=== PATIENT | male | born 1950 | race Caucasian/White ===

== ENCOUNTER 2019-04-14 06:22 | Day surgery (SDC) | payer MEDICARE ==
[2019-04-11 10:35] VITALS: BMI 33.9
[2019-04-14] MEDS ORDERED: SODIUM CHLORIDE 0.9% 1,000 ML in EMPTY BAG 1 BAG IV ONE (06:37)
[2019-04-14] MEDS ORDERED: ALPRAZolam 0.25 MG TAB PO PRN (06:37)
[2019-04-14] MEDS ORDERED: ASPIRIN 325 MG TAB PO STA (06:37)
[2019-04-14] MEDS ORDERED: ATORVASTATIN 80 MG TAB PO STA (06:37)
[2019-04-14] MEDS ORDERED: NITROGLYCERIN SL TABS 0.4 MG TAB SUBLINGUAL PRN (06:37)
[2019-04-14] MEDS ORDERED: ALPRAZolam 0.5 MG TAB PO PRN (06:37)
[2019-04-14 07:03] VITALS: TEMP 97.7
[2019-04-14] MEDS ORDERED: BENZOCAINE SPRAY 1 CAN MUCOUS MEM ONE (07:33)
[2019-04-14] MEDS: fentaNYL (PF) 50 MCG/ML 2 ML AMP IV ONE ×2 (07:39→07:41)
[2019-04-14] MEDS ORDERED: MIDAZOLAM (PF) 2 MG/2 ML VIAL IV ONE ×2 (07:39→07:41)
[2019-04-14] MEDS ORDERED: LIDOCAINE 1% INJ 10MG/ML (20 ML MDV) SQ ONE (09:05)
[2019-04-14] MEDS ORDERED: VERAPAMIL SYRINGE (5 MG/10 ML) IV ONE (09:06)
[2019-04-14] MEDS ORDERED: HEPARIN SODIUM 1,000 UN/ML (10ML VL) IV ONE (09:06)
[2019-04-14] MEDS ORDERED: IOPAMIDOL-370 125ML BTL INJ ONE (09:16)
[2019-04-14] MEDS ORDERED: hydrALAZINE HCL 20 MG/ML 1 ML VIAL IV ONE (09:22)
[2019-04-14] MEDS ORDERED: SODIUM CHLORIDE 0.9% 1,000 ML IV SCH (09:30)
[2019-04-14 09:46] VITALS: RESP 18
--- NOTE | 2019-04-14 09:59 | ECHOT ---
TRANSESOPHAGEAL ECHOCARDIOGRAM DATE OF SERVICE: 04/14/2019. PERFORMING PHYSICIAN: Amador Schmitz MD, Front Desk. PROCEDURE PERFORMED: Transesophageal echocardiogram. INDICATION: This is a 69-year-old gentleman who was diagnosed recently with aortic stenosis. He was experiencing shortness of breath. On examination, he does have quite significant murmur with diminished S2. There was some concern about the severity of aortic stenosis and because of that, a transesophageal echocardiogram was advised. COMPLICATION: None. LEVEL OF SEDATION: Moderate with sedation length of 10 minutes. PROCEDURE DESCRIPTION: After obtaining an informed consent, explaining the procedure, benefits, risks, complications and alternatives, the patient was brought to the transesophageal echocardiogram suite. A pulse oximetry and heart rate monitors were attached to the patient prior to the procedure. The patient's throat was sprayed using lidocaine locally. Following that, the patient was turned into left lateral position. A bite guard was placed and the patient was then sedated with the above doses of Versed and fentanyl in divided doses. Following that, the transesophageal echocardiogram probe was advanced through the bite guard into the mid esophagus where 2-D echocardiogram images as well as color Doppler images of various cardiac structures were obtained. We evaluated the interatrial septum using 2-D echocardiogram, color Doppler, and contrast study. The procedure was completed. There were no complications. FINDINGS: The left ventricular dimension and systolic function appeared to be within normal limits. The ejection fraction appeared to be in the range of 60%. The right ventricle appeared to be of normal size and function. The left atrium appeared to be mildly dilated. The aortic valve appeared to be trileaflet valve with evidence of moderate aortic stenosis by planimetry as well as by gradient. I get the gradient of 23 mmHg only. By planimetry, the aortic valve measured 1.4 cm. The mitral valve seems to be mildly thickened with mild to moderate MR. There was mild to moderate tricuspid regurgitation and mild pulmonic insufficiency seen. The left atrial appendage appeared to be free from any thrombus. CONCLUSION: 1. Moderate aortic stenosis by gradient as well as by planimetry. 2. Normal left ventricular dimension and systolic function. 3. Normal right ventricular dimension and systolic function. 4. Normal left atrial appendage without any evidence of thrombus. 5. Intact interatrial septum without any evidence of shunt. 6. Mildly thickened mitral valve leaflets with mild to moderate mitral regurgitation. 7. Normal tricuspid valve and pulmonic valve. 8. Normal aortic root dimension. 9. No evidence of pericardial effusion. MMODL / IJN: [id number] /
[2019-04-14 11:39] VITALS: BP 155/77; PULSE 78
--- NOTE | 2019-04-14 17:53 | LTR ---
DATE OF SERVICE: April 14, [address] Arboleda: Mr. Ab Dumont underwent a transesophageal echocardiogram and heart catheterization today. The transesophageal echocardiogram revealed moderate aortic stenosis only. The heart catheterization revealed intermediate nonobstructive disease involving the LAD. Having said that, I did recommend maximized medical treatment and follow up with the patient. Thank you for allowing us to participate in his care and please do not hesitate to call if you have any question or concerns. MMODL / IJN: [id number] /
--- NOTE | 2019-04-14 17:55 | CC ---
CARDIAC CATHETERIZATION REPORT DATE OF SERVICE: April 14, 2019 PERFORMING PHYSICIAN: Amador Schmitz, aniline press worker. PROCEDURE PERFORMED: Selective right and left coronary angiogram. INDICATION: This is a 69-year-old gentleman who was referred by Dr. Matos for further evaluation of shortness of breath. The patient does have COPD, but it was felt that the shortness of breath out of proportion to the COPD. He does have aortic stenosis. APPROACH: Right radial artery. COMPLICATION: None. LEVEL OF SEDATION: Moderate with sedation length of 17 minutes. PROCEDURE DESCRIPTION: After obtaining an informed consent, the patient was brought to the cardiac seed laboratory assistant. The right radial artery was cannulated using micropuncture technique, the micropuncture wire passed easily. Then I placed a 6-Azerbaijani sheath in the right radial artery and subsequently I gave the patient 10,000 units of heparin IV and 2 mg of verapamil IA. Subsequently, I did selective right and left coronary angiogram using JR4 and JL3.5 catheters. Left heart catheterization was not performed. The procedure was completed without any complication. SELECTIVE CORONARY ANGIOGRAM: 1. The right coronary artery is a large caliber vessel and codominant vessel. It appeared to be angiographically normal. Distally bifurcates into small PDA and PLV branches both appeared to be angiographically normal. 2. The left main is calcified with mild disease only. It bifurcates into left circumflex and LAD. 3. The left circumflex is a large caliber vessel and it is a codominant vessel. The proximal circumflex appeared to be angiographically normal. The mid circumflex appeared to be normal and gives rise into a large OM branch which appeared to be angiographically normal and the circumflex after that appeared to be normal and bifurcates distally into PDA and PLV branches, both appeared to be angiographically normal. 4. The proximal LAD appeared to have a lesion in the range of 50% only. It gives rise into a diagonal branch which seems to be normal. The mid and distal LAD appeared to be normal. 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 POSTPROCEDURE MANAGEMENT: 1. Maximize medical treatment. 2. Follow up with the patient. Please cc a copy to Dr. Matos as well. MMODL / IJN: [id number] /
== END 2019-04-14 14:03 | disposition home or self-care (01) ==
LOC: CATHCVL 06:22
PROVIDERS: ATTEND Internal Medicine Interventional Cardiology
DX: I35.0 Nonrheumatic aortic (valve) stenosis (principal); I25.10 Atherosclerotic heart disease of native coronary artery without angina pectoris; R06.02 Shortness of breath; R01.1 Cardiac murmur, unspecified; I34.0 Nonrheumatic mitral (valve) insufficiency; I36.1 Nonrheumatic tricuspid (valve) insufficiency; I10 Essential (primary) hypertension; E78.00 Pure hypercholesterolemia, unspecified; J44.9 Chronic obstructive pulmonary disease, unspecified; G47.33 Obstructive sleep apnea (adult) (pediatric); Z99.89 Dependence on other enabling machines and devices; E66.9 Obesity, unspecified; Z68.33 Body mass index [BMI] 33.0-33.9, adult; F17.210 Nicotine dependence, cigarettes, uncomplicated; Z79.82 Long term (current) use of aspirin; Z79.899 Other long term (current) drug therapy
CPT/HCPCS: 93312; 93320; 93325; 93454; C1769 ×2; C1894; C1892; J0360; J2001; J3010; J1644; Q9967; J2250

== ENCOUNTER → 2020-08-03 | Day surgery (SDC) | payer MEDICARE ==
[2020-08-01 13:52] VITALS: BMI 36.6
[~2020-08-03] MED LIST: ADENOSINE 180 MG in SODIUM CHLORIDE 0.9% 30 ML IVP ONE; ALPRAZolam 0.25 MG TAB PO PRN; ALPRAZolam 0.5 MG TAB PO PRN; ASPIRIN 325 MG TAB PO STA; BIVALIRUDIN 250 MG in SODIUM CHLORIDE 0.9% 50 ML IV ONE; BIVALIRUDIN BOLUS 250 MG/50 ML IV ONE; ENALAPRILAT 1.25 MG/ML 1 ML VIAL IVP STA; IOPAMIDOL-370 125ML BTL INJ ONE; IV FLUID CONTINUATION 1,000 ML IV ONE; IV FLUID CONTINUATION 400 ML IV ONE; LIDOCAINE 1% INJ 10MG/ML (20 ML MDV) ONE; LIDOCAINE 1% INJ 10MG/ML (20 ML MDV) SQ ONE; MIDAZOLAM 2 MG/2 ML VIAL IV ONE; NITROGLYCERIN SL TABS 0.4 MG TAB SUBLINGUAL PRN; RX INFO: IV CONTRAST WAS GIVEN 1 EACH MISC MISCELLANE PRN; SODIUM CHLORIDE 0.9% 1,000 ML IV SCH; SODIUM CHLORIDE 0.9% 1,000 ML in EMPTY BAG 1 BAG IV ONE; SODIUM CHLORIDE 0.9% 500 ML 500 ML IV ONE; fentaNYL (PF) 50 MCG/ML 2 ML AMP IV ONE; fentaNYL (PF) 50 MCG/ML 2 ML AMP ONE; hydrALAZINE HCL 20 MG/ML 1 ML VIAL IVP STA; hydrALAZINE HCL 20 MG/ML 1 ML VIAL ONE
[2020-08-03 07:20] VITALS: RESP 18; TEMP 98
[2020-08-03] MEDS: BENZOCAINE SPRAY 1 CAN TOPICAL ONE ×2 (07:40→07:44)
[2020-08-03] MEDS: MIDAZOLAM 2 MG/2 ML VIAL IV ONE ×3 (07:56→08:03)
--- NOTE | 2020-08-03 10:39 | ECHOT ---
TRANSESOPHAGEAL ECHOCARDIOGRAM TRANSESOPHAGEAL ECHOCARDIOGRAM: DATE OF SERVICE: 08/03/2020 PERFORMING PHYSICIAN: Amador Schmitz MD. PROCEDURE PERFORMED: Transesophageal echocardiogram. INDICATION: Aortic stenosis. COMPLICATION: None. LEVEL OF SEDATION: Moderate with sedation length of 15 minutes. PROCEDURE DESCRIPTION: After obtaining an informed consent, the patient was brought to the transesophageal echocardiogram suite. A pulse oximetry and heart rate monitors were attached to the patient. Subsequently, after giving conscious sedation, the transesophageal echocardiogram probe was advanced through the bite guard to the mid esophagus where 2D echocardiogram images as well as color Doppler images of various cardiac structures were obtained. Particular attention was paid to the aortic valve. The procedure was completed without any complication. FINDINGS: The left ventricular dimension and systolic function appeared to be within normal limits. The ejection fraction appeared to be in the range of 50% to 55%. The right ventricle appeared to be of normal size and function with left atrium appeared to be mildly dilated. The aortic valve is trileaflet valve without regurgitation, but with mild stenosis with a peak gradient of 25 and mean of 15 mmHg. The mitral valve seems to be in mildly thickened with mild to moderate MR. The left atrial appendage appeared to be free from any thrombus. The interatrial septum appeared to be intact. CONCLUSION: 1. Aortic sclerosis with mild aortic stenosis with a mean gradient of 15 mmHg. The aortic valve is trileaflet valve. 2. Thickened anterior and posterior mitral leaflet with evidence of mild to moderate MR. 3. Mild tricuspid regurgitation and mild pulmonic insufficiency. 4. Normal left ventricular dimension and systolic function. 5. Normal right ventricular dimension and systolic function. 6. Normal left atrial appendage. 7. Intact interatrial septum. MMODL / IJN: [id number] /
--- NOTE | 2020-08-03 11:18 | CC ---
CARDIAC CATHETERIZATION REPORT DATE OF SERVICE: 08/03/2020 PERFORMING PHYSICIAN: Amador Schmitz MD. PROCEDURE PERFORMED: 1. Right heart catheterization. 2. Left heart catheterization. 3. Selective right and left coronary angiogram. INDICATION: This is a 70-year-old gentleman with history of aortic stenosis and coronary artery disease, was experiencing increasing in the shortness of breath with exertion. On examination, the intensity of S2 has diminished compared to before. He underwent a transesophageal echocardiogram and that showed evidence of mild aortic stenosis and he was brought today to undergo a heart catheterization. The previous heart catheterization revealed intermediate disease involving the LAD. APPROACH: Right common femoral vein and right common femoral artery. COMPLICATION: None. LEVEL OF SEDATION: Moderate with sedation length of 51 minutes. PROCEDURE DESCRIPTION: After obtaining an informed consent, the patient was brought to the cardiac cath lab radiology technician. The right common femoral vein and right common femoral arteries were cannulated using micropuncture technique, the micropuncture wire passed easily then I placed an 8-Wallisian sheath in the vein and 6-Wallisian sheath in the arteries. Right heart catheterization was performed using Washburn catheter which inserted through the venous sheath all the way to the right heart. Left heart catheterization was performed using the JR4 catheter which crossed the aortic valve. Selective right and left coronary angiogram were performed using JR4 and JL4 catheter. The procedure was completed without any complication. After that, we did also an FFR of the LAD, please see a separate paragraph for that. HEMODYNAMICS: 1. Pulmonary capillary wedge pressure was 16 mmHg. 2. PA pressures were as follows: systolic 39 and diastolic 30 and mean of 34 mmHg. 3. RV pressures were as follows: systolic 32 and end-diastolic of 12 mmHg. 4. RA pressure was 12 mmHg. SELECTIVE CORONARY ANGIOGRAM: 1. Right coronary artery is a moderate to large caliber vessel. It is codominant vessel. The RCA has mild disease as the LCA is angiographically normal. 2. The left main is angiographically normal with calcified left main. It bifurcates into a large dominant left circumflex and left anterior descending artery. 3. The left circumflex is a large caliber vessel, it is a codominant vessel. The proximal circumflex has mild disease only. The mid circumflex is normal and gives rise into a large OM which seems to be angiographically normal. The circumflex distally is normal and bifurcates into PDA and PLV branches both appeared to be angiographically normal. 4. The LAD, the proximal LAD has a tubular lesion appeared to be in the range of 60% to 70%. The lesion appeared to be calcified. The mid LAD and distal LAD appeared to be angiographically normal. 5. FFR of the LAD. After zeroing the Doppler wire and equalizing between the Doppler wire and the guiding catheter with did an FFR per IV adenosine infusion. As a matter of fact, the IFR came into be at 0.84 and the FFR came in to be at 0.72. CONCLUSION: 1. Mild pulmonary hypertension. 2. Mildly elevated LVEDP. 3. Mild aortic stenosis. 4. Severe single-vessel coronary artery disease involving the proximal LAD. The LAD lesion is calcified. POSTPROCEDURE MANAGEMENT: The patient is going to be seen by cardiothoracic surgeon for the evaluation of single- vessel GRIER to LAD. If he is turned to be high risk for the surgery, I will schedule the patient to undergo a PCI of the LAD with adjunctive use of atherectomy device. MMODL / IJN: [id number] /
[2020-08-03 15:38] VITALS: BP 172/76; PULSE 76
--- NOTE | 2020-08-07 09:47 | CDI ---
Outpatient Documentation Clarification Form Date: 08/07/20 CDS/Lockstitch Shoulder Joiner Name: Skyla Nguyễn Phone: If any questions, call Frnaci Medeirso Leather Repairer at [phone] Patient Name: Ab Dumont Admit Date: 08/03/20 Discharge Date: 08/03/20 ATTENTION: The [facility] Coding Staff appreciate your assistance in clarifying documentation. Please respond to the clarification below the line at the bottom and electronically sign. The [facility] Coding staff will review the response and follow-up if needed. Please note: Queries are made part of the Legal Health Record. If you have any questions, please contact the Leather Repairer. Dear Dr. Schmitz, Please provide clarification as to the components of the SURESH that were performed. In order to code to the greatest specificity, all components must be clearly documented. Please clarify the following: Suresh Components. Echocardiography, transesophageal, real time with image documentation (2D) (with or without M-mode recording); including probe placement, image acquisition, interpretation and report. Doppler echocardiography, pulsed wave and/or continuous wave with spectral display (List separately in addition to codes for echocardiographic imaging); complete Doppler echocardiography color flow velocity mapping (List separately in addition to codes for echocardiography) Thank you for your kind consideration MTDD
== END ==
LOC: CATHCVL 06:23
PROVIDERS: ATTEND Internal Medicine Interventional Cardiology
DX: I25.110 Atherosclerotic heart disease of native coronary artery with unstable angina pectoris (principal); I25.84 Coronary atherosclerosis due to calcified coronary lesion; I08.3 Combined rheumatic disorders of mitral, aortic and tricuspid valves; I27.20 Pulmonary hypertension, unspecified; I10 Essential (primary) hypertension; E66.9 Obesity, unspecified; Z68.36 Body mass index [BMI] 36.0-36.9, adult; E78.00 Pure hypercholesterolemia, unspecified; F17.200 Nicotine dependence, unspecified, uncomplicated; Z79.82 Long term (current) use of aspirin; Z79.51 Long term (current) use of inhaled steroids; Z79.899 Other long term (current) drug therapy
CPT/HCPCS: 93460; 93312; 93320; 93325; C1760; C1769 ×3; C1887; C1894 ×2; J2250; J0360; J2001; J3010; J0583; J0153; Q9967

== ENCOUNTER 2020-08-27 10:16 | Day surgery (SDC) | payer MEDICARE ==
[2020-08-22 13:21] VITALS: BMI 36.6
[~2020-08-27 10:16] MED LIST changes: -ADENOSINE 180 MG in SODIUM CHLORIDE 0.9% 30 ML IVP ONE; +ASPIRIN 325 MG TAB PO ONE; -ASPIRIN 325 MG TAB PO STA; +ATORVASTATIN 80 MG TAB PO ONE; -BIVALIRUDIN 250 MG in SODIUM CHLORIDE 0.9% 50 ML IV ONE; -BIVALIRUDIN BOLUS 250 MG/50 ML IV ONE; -ENALAPRILAT 1.25 MG/ML 1 ML VIAL IVP STA; -IOPAMIDOL-370 125ML BTL INJ ONE; -IV FLUID CONTINUATION 1,000 ML IV ONE; -IV FLUID CONTINUATION 400 ML IV ONE; -LIDOCAINE 1% INJ 10MG/ML (20 ML MDV) ONE; -LIDOCAINE 1% INJ 10MG/ML (20 ML MDV) SQ ONE; -MIDAZOLAM 2 MG/2 ML VIAL IV ONE; -RX INFO: IV CONTRAST WAS GIVEN 1 EACH MISC MISCELLANE PRN; -SODIUM CHLORIDE 0.9% 1,000 ML IV SCH; -SODIUM CHLORIDE 0.9% 500 ML 500 ML IV ONE; -fentaNYL (PF) 50 MCG/ML 2 ML AMP IV ONE; -fentaNYL (PF) 50 MCG/ML 2 ML AMP ONE; -hydrALAZINE HCL 20 MG/ML 1 ML VIAL IVP STA; -hydrALAZINE HCL 20 MG/ML 1 ML VIAL ONE
[2020-08-27] MEDS ORDERED: SODIUM CHLORIDE 0.9% 1,000 ML IV ONE (10:24)
[2020-08-27 10:58] LABS: Basophils # (A) 0.1 k/uL (0-0.2); Basophils % (A) 1 %; Eosinophils # (A) 0.4 k/uL (0-0.7); Eosinophils % (A) 5 %; HCT 37.1 % (39.0-53.0); HGB 12.7 gm/dL (13.0-17.5); Lymphocytes # (A) 1.3 k/uL (1.0-4.8); Lymphocytes % (A) 16 %; MCH 33.7 pg (25.0-35.0); MCHC 34.3 g/dL (31.0-37.0); MCV 98.1 fL (80.0-100.0); Mean Platelet Volume 7.2; Monocytes # (A) 0.6 k/uL (0-1.0); Monocytes % (A) 8 %; Neutrophils # (A) 5.3 k/uL (1.3-7.7); Neutrophils % (A) 68 %; Platelet Count 210 k/uL (150-450); RBC 3.78 m/uL (4.30-5.90); RDW 12.4 % (11.5-15.5); WBC 7.9 k/uL (3.8-10.6)
[2020-08-27 11:07] LABS: African American GFR (CKD) >90 (>60 ml/min/1.73 sqM); Anion Gap 6 mmol/L; Blood Urea Nitrogen 11 mg/dL (9-20); Calcium 8.6 mg/dL (8.4-10.2); Carbon Dioxide 24 mmol/L (22-30); Chloride 101 mmol/L (98-107); Glucose 97 mg/dL (74-99); Non-African American GFR(CKD) 89 (>60 ml/min/1.73 sqM); Sodium 131 mmol/L (137-145)
[2020-08-27 11:10] LABS: Potassium 4.6 mmol/L (3.5-5.1)
[2020-08-27] MEDS ORDERED: LIDOCAINE 1% INJ 10MG/ML (20 ML MDV) ONE (11:44)
[2020-08-27] MEDS ORDERED: LIDOCAINE 1% INJ 10MG/ML (20 ML MDV) SQ ONE (12:14)
[2020-08-27] MEDS ORDERED: MIDAZOLAM 2 MG/2 ML VIAL IV ONE ×3 (12:15→12:56)
[2020-08-27] MEDS ORDERED: BIVALIRUDIN BOLUS 250 MG/50 ML IV ONE (12:20)
[2020-08-27] MEDS ORDERED: BIVALIRUDIN 250 MG in SODIUM CHLORIDE 0.9% 50 ML IV ONE (12:20)
[2020-08-27] MEDS ORDERED: ENALAPRILAT 1.25 MG/ML 1 ML VIAL ONE (12:32)
[2020-08-27] MEDS ORDERED: hydrALAZINE HCL 20 MG/ML 1 ML VIAL ONE ×2 (12:32→14:53)
[2020-08-27] MEDS ORDERED: hydrALAZINE HCL 20 MG/ML 1 ML VIAL IV ONE (12:36)
[2020-08-27] MEDS ORDERED: ENALAPRILAT 1.25 MG/ML 1 ML VIAL IV ONE (12:36)
[2020-08-27] MEDS ORDERED: HYDROmorphone 0.5 MG/0.5 ML SYRINGE IVP ONE (12:38)
[2020-08-27] MEDS: NITROGLYCERIN 1000MCG/10ML SYRINGE INTRACORON ONE ×2 (12:56→13:02)
[2020-08-27] MEDS ORDERED: niCARdipine Syringe (1,000 mcg/10 mL) INTRACORON ONE (13:02)
[2020-08-27] MEDS ORDERED: TICAGRELOR 90 MG TAB ONE (13:03)
[2020-08-27] MEDS ORDERED: IOPAMIDOL-370 125ML BTL INJ ONE (13:15)
[2020-08-27] MEDS ORDERED: RX INFO: IV CONTRAST WAS GIVEN 1 EACH MISC MISCELLANE PRN (13:16)
[2020-08-27] MEDS ORDERED: ATROPINE SULFATE 0.1 MG/ML 10ML SYRINGE IV PRN (13:16)
[2020-08-27] MEDS ORDERED: MAG HYDROX/AL HYDROX/SIMETH 30 ML CUP PO PRN (13:16)
[2020-08-27] MEDS ORDERED: ZOLPIDEM 5 MG TAB PO PRN (13:16)
[2020-08-27] MEDS ORDERED: NITROGLYCERIN SL TABS 0.4 MG TAB SUBLINGUAL PRN (13:16)
[2020-08-27] MEDS ORDERED: SODIUM CHLORIDE 0.9% 1,000 ML IV SCH (13:30)
--- NOTE | 2020-08-27 15:51 | CC ---
CARDIAC CATHETERIZATION REPORT CARDIAC CATHETERIZATION AND PERCUTANEOUS CORONARY INTERVENTION: DATE OF SERVICE: August 27, 2020 PERFORMING PHYSICIAN: Amador Schmitz MD. PROCEDURE PERFORMED: 1. Atherectomy of the left anterior descending artery using the orbital atherectomy device from [facility] using 1.25 mm xiomara. 2. Intravascular ultrasound (IVUS) of the left anterior descending artery. 3. Successful stenting of the proximal left anterior descending artery using 3.5 x 28 mm Xience JACKIE which was post-dilated using 3.75 mm noncompliant balloon with an excellent angiographic results and reduction of stenosis from 80% to 0%. INDICATION: This is a 70-year-old gentleman with coronary artery disease identified recently on a heart catheterization and documented to be flow-limiting in the LAD by fractional flow reserve, continues to have shortness of breath with exertion, concerning for angina. He was referred for surgery and he was turned down. Because of that, he was brought today to undergo an intervention. APPROACH: Right common femoral artery. COMPLICATION: None. LEVEL OF SEDATION: Moderate with a sedation length of 56 minutes. PROCEDURES DESCRIPTION: After obtaining an informed consent, the patient was brought to the cardiac flower shop laborer/designer. The right common femoral artery was cannulated using micropuncture technique, the micropuncture wire passed easily, then I placed a 6-Brazilian sheath in the right common femoral artery. Anticoagulation was initiated with Angiomax using bolus and drip per protocol. Subsequently, I did engage the left main using an XP35 LAD guide. After that, I did wire the LAD using the Viper flex wire and the wire was advanced all the way to the distal LAD. After that, I did intravascular ultrasound of the LAD, which revealed a diameter of about 3.75-4 mm. Subsequently, I did atherectomy of the LAD using the orbital atherectomy device and using 1.25 mm atherectomy xiomara x3. After that. I did balloon angioplasty using 3.0 x 20 mm balloon before I deployed 3.5 x 28 mm Xience JACKIE where the stent was positioned under fluoroscopy guidance and deployed under 16 atmospheres for 20 seconds. The stent was post-dilated using 3.75 mm NC balloon. The balloon was inflated under 18 and 20 atmospheres x3. The final angiogram showed excellent angiographic results and the procedure was completed without any complication. POSTPROCEDURE MANAGEMENT: 1. Dual anti-platelet therapy. 2. Risk factor modifications. 3. Follow up with the patient. MMODL / IJN: [id number] /
[2020-08-27] MEDS: hydrALAZINE HCL 20 MG/ML 1 ML VIAL IVP PRN (19:01)
[2020-08-27] MEDS: TICAGRELOR 90 MG TAB PO SCH (20:04)
[2020-08-27] MEDS ORDERED: ATORVASTATIN 80 MG TAB PO SCH (21:00)
[2020-08-28] MEDS: hydrALAZINE HCL 20 MG/ML 1 ML VIAL IVP PRN ×2 (04:16→07:42)
[2020-08-28 04:35] VITALS: TEMP 97.5
[2020-08-28] MEDS: SYMBICORT 80-4.5 MCG INHALER INHALATION SCH ×2 (07:27→07:38)
[2020-08-28] MEDS: IPRATROPIUM 0.5 MG/2.5 ML NEBU INHALATION SCH ×2 (07:27→11:13)
[2020-08-28] MEDS ORDERED: PANTOPRAZOLE 40 MG TABLET PO SCH (07:30)
[2020-08-28 07:39] VITALS: RESP 16
[2020-08-28] MEDS: TICAGRELOR 90 MG TAB PO SCH (07:41)
[2020-08-28 08:17] LABS: Basophils # (A) 0.1 k/uL (0-0.2); Basophils % (A) 1 %; Eosinophils # (A) 0.3 k/uL (0-0.7); Eosinophils % (A) 3 %; HCT 40.4 % (39.0-53.0); HGB 13.7 gm/dL (13.0-17.5); Lymphocytes # (A) 0.9 k/uL (1.0-4.8); Lymphocytes % (A) 10 %; MCH 33.3 pg (25.0-35.0); MCHC 33.9 g/dL (31.0-37.0); MCV 98.2 fL (80.0-100.0); Mean Platelet Volume 7.4; Monocytes # (A) 0.7 k/uL (0-1.0); Monocytes % (A) 8 %; Neutrophils # (A) 6.9 k/uL (1.3-7.7); Neutrophils % (A) 77 %; Platelet Count 236 k/uL (150-450); RBC 4.12 m/uL (4.30-5.90); RDW 12.5 % (11.5-15.5)
[2020-08-28 08:24] VITALS: BP 132/77; PULSE 98
[2020-08-28 08:37] LABS: African American GFR (CKD) >90 (>60 ml/min/1.73 sqM); Anion Gap 7 mmol/L; Blood Urea Nitrogen 9 mg/dL (9-20); Carbon Dioxide 24 mmol/L (22-30); Chloride 102 mmol/L (98-107); Glucose 103 mg/dL (74-99); Non-African American GFR(CKD) >90 (>60 ml/min/1.73 sqM); Potassium 4.2 mmol/L (3.5-5.1); Sodium 133 mmol/L (137-145)
[2020-08-28] MEDS ORDERED: LOSARTAN 50 MG TAB PO SCH ×2 (09:00→09:30)
[2020-08-28] MEDS ORDERED: MULTIVITAMINS, THERA 1 EACH TAB PO SCH (09:00)
[2020-08-28] MEDS ORDERED: ASPIRIN 81 MG PO SCH (09:00)
[2020-08-28] MEDS ORDERED: INFLUENZA VACCINE (6 MOS+) 60 MCG/0.5 ML SYRINGE IM ONE (09:09)
--- NOTE | 2020-08-28 18:06 | DS ---
DISCHARGE SUMMARY DATE OF ADMISSION: 08/27/2020 DATE OF DISCHARGE: 2019 BRIEF HISTORY: This is a very pleasant 70-year-old gentleman who was diagnosed recently with a severe calcified lesion involving the proximal left anterior descending artery causing the patient to have shortness of breath with exertion. He was admitted to the hospital yesterday and underwent successful atherectomy along with stenting of the proximal left anterior descending artery with excellent angiographic results and without any complication from right groin approach. The patient was seen this morning. He is overall feeling better in terms of shortness of breath, and no symptoms of chest pain or chest discomfort. He is going to be discharged home on dual anti-platelet therapy along with high- intensity statin, and I am going to follow up with the patient next week in the office. MMSTEVIE / ISSA: [id number] /
== END 2020-08-28 12:00 | disposition home or self-care (01) ==
LOC: CATHCVL 10:16 → 3NCARDOBS 14:20 → CATHCVL 08-28 12:00
PROVIDERS: ATTEND Internal Medicine Interventional Cardiology
DX: I25.10 Atherosclerotic heart disease of native coronary artery without angina pectoris (principal); I10 Essential (primary) hypertension; I35.0 Nonrheumatic aortic (valve) stenosis; J44.9 Chronic obstructive pulmonary disease, unspecified; E78.5 Hyperlipidemia, unspecified; Z79.51 Long term (current) use of inhaled steroids; Z79.82 Long term (current) use of aspirin; Z79.899 Other long term (current) drug therapy
CPT/HCPCS: 94640; 92978; 80048 ×2; 85025 ×2; 90686; C9602; C1725 ×2; C1887; C1769 ×4; C1894; C1753; C1714; C1760; C1874; G0008; J2250; J0360 ×2; J2001; J0583; J1170; Q9967

== ENCOUNTER 2021-03-12 19:27 | Inpatient (IN) | payer MEDICARE ==
[2021-03-12] MEDS ORDERED: SODIUM CHLORIDE 0.9% 1,000 ML IV STA (19:54)
--- NOTE | 2021-03-12 19:55 | ED ---
SOB HPI - General Source: patient Mode of arrival: ambulatory Limitations: no limitations <Jase Oro - Last Filed: 03/12/21 21:29> <Cal Pak - Last Filed: 03/26/21 07:20> - General Chief Complaint: Shortness of Breath Stated Complaint: Pneumonia Time Seen by Provider: 03/12/21 19:42 - History of Present Illness Initial Comments: 70-year-old male with history of COPD, CAD, hypertension and dyslipidemia presents to the emergency department with a chief complaint shortness of breath. Patient reports not days ago he was diagnosed with pneumonia and was admitted at [facility] for 3 days. Patient states he received IV antibiotics and upon discharge he was prescribed to oral antibiotics. Patient reports about 3-4 days ago he developed upset stomach from the medication with multiple episodes of vomiting. States she has not been able to take the medication since. Patient cannot recall the exact name of the medications that he was on. He is not oxygen dependent at home but does use nebulized treatments. Patient reports yesterday he went to see his primary care physician also obtain laboratory work and x-rays which revealed no improvement in pneumonia and also he was hyponatremic. The primary care physician spoke with his practice coordinator, , who advised him to come to emergency department for further management. Patient denies any chest pain, fevers or chills at this time. (Jase Oro) - Related Data Home Medications Medication Instructions Recorded Confirmed Aspirin [Adult Low Dose Aspirin EC] 81 mg PO DAILY 04/11/19 03/12/21 Fluticasone/Umeclidin/Vilanter 1 puff INHALATION RT-DAILY 08/01/20 03/12/21 [Trelegy Ellipta 100-62.5-25] Albuterol Sulfate [Ventolin HFA] 2 puff INHALATION RT-Q4H PRN 03/12/21 03/12/21 Atorvastatin [Lipitor] 80 mg PO DAILY 03/12/21 03/12/21 Clopidogrel Bisulfate [Plavix] 75 mg PO DAILY 03/12/21 03/12/21 L.acidoph,Paracasei, B.lactis 1 cap PO DAILY 03/12/21 03/12/21 [Probiotic] Metoprolol Tartrate [Lopressor] 25 mg PO BID 03/12/21 03/12/21 Ondansetron [Zofran] 4 mg PO Q6H PRN 03/12/21 03/12/21 Previous Rx's Medication Instructions Recorded Acetaminophen Tab [Tylenol] 650 mg PO Q6HR PRN tab 03/15/21 Ipratropium-Albuterol Nebulize 3 ml INHALATION RT-QID 30 Days #90 03/15/21 [Duoneb 0.5 mg-3 mg/3 ml Soln] ml Allergies Allergy/AdvReac Type Severity Reaction Status Date / Time cefuroxime AdvReac Nausea & Verified 03/14/21 12:03 Vomiting & Diarrhea doxycycline AdvReac Nausea & Verified 03/14/21 12:03 Vomiting & Diarrhea Review of Systems ROS Other: All systems not noted in ROS Statement are negative. <Jase Oro - Last Filed: 03/12/21 21:29> ROS Other: All systems not noted in ROS Statement are negative. <Cal Pak - Last Filed: 03/26/21 07:20> ROS Statement: Those systems with pertinent positive or pertinent negative responses have been documented in the HPI. Past Medical History Past Medical History: COPD, CVA/TIA, Hyperlipidemia, Hypertension, Pneumonia, S leep Apnea/CPAP/BIPAP Additional Past Medical History / Comment(s): Migraines, right cataract, two leaky valves, has CPAP machine. History of Any Multi-Drug Resistant Organisms: None Reported Past Surgical History: Heart Catheterization, Hernia Repair Additional Past Surgical History / Comment(s): Left cataract surgery. stent LAD by Dr Schmitz 08/27/20 Past Anesthesia/Blood Transfusion Reactions: No Reported Reaction Past Psychological History: No Psychological Hx Reported Smoking Status: Former smoker Past Alcohol Use History: Occasional Past Drug Use History: Marijuana - Past Family History Mother Family Medical History: No Reported History Father Additional Family Medical History / Comment(s): Parkinsons <Jase Oro - Last Filed: 03/12/21 21:29> General Exam Limitations: no limitations General appearance: alert, in no apparent distress, obese Head exam: Present: atraumatic, normocephalic, normal inspection Eye exam: Present: normal appearance, PERRL, EOMI Pupils: Present: normal accommodation ENT exam: Present: normal exam, normal oropharynx, mucous membranes moist, TM's normal bilaterally, normal external ear exam Neck exam: Present: normal inspection, full ROM. Absent: tenderness, meningismus, lymphadenopathy Respiratory exam: Present: normal lung sounds bilaterally, rales (Mild crackles noted at right lung base.). Absent: respiratory distress, wheezes, rhonchi, stridor, chest wall tenderness, accessory muscle use Cardiovascular Exam: Present: regular rate, normal rhythm, systolic murmur GI/Abdominal exam: Present: soft. Absent: distended, tenderness, guarding, rebound Extremities exam: Present: normal inspection, full ROM, normal capillary refill. Absent: tenderness, pedal edema, joint swelling Back exam: Present: normal inspection, full ROM. Absent: tenderness, CVA tenderness (R), CVA tenderness (L) Neurological exam: Present: alert, oriented X3 Psychiatric exam: Present: normal affect, normal mood Skin exam: Present: warm, dry, intact, normal color <Jase Oro - Last Filed: 03/12/21 21:29> Course Vital Signs 03/12/21 03/12/21 03/13/21 19:34 21:38 01:36 Temperature 97.9 F Pulse Rate 94 84 85 Respiratory 20 18 16 Rate Blood Pressure 134/72 142/73 163/89 O2 Sat by Pulse 93 L 96 97 Oximetry 03/13/21 03/13/21 03/13/21 07:22 07:33 08:00 Temperature Pulse Rate 73 Respiratory 16 18 Rate Blood Pressure 128/73 128/73 O2 Sat by Pulse 97 Oximetry 03/13/21 03/13/21 03/13/21 09:00 10:00 11:00 Temperature Pulse Rate 70 66 75 Respiratory 18 18 18 Rate Blood Pressure 125/70 O2 Sat by Pulse 97 97 97 Oximetry 03/13/21 03/13/21 03/13/21 12:00 12:20 12:30 Temperature Pulse Rate 82 82 86 Respiratory 18 Rate Blood Pressure O2 Sat by Pulse 97 Oximetry 03/13/21 12:55 Temperature 97.9 F Pulse Rate 86 Respiratory 18 Rate Blood Pressure 125/70 O2 Sat by Pulse 97 Oximetry Medical Decision Making - Lab Data Result diagrams: 03/12/21 20:19 03/12/21 20:19 <Jase Oro - Last Filed: 03/12/21 21:29> - Lab Data Result diagrams: 03/12/21 20:19 03/15/21 08:38 <Cal Pak - Last Filed: 03/26/21 07:20> - Medical Decision Making 70-year-old male with history of COPD, dyslipidemia, hypertension, CAD presents to the emergency department with chief complaint of shortness of breath. Patient is having failure of outpatient treatment for pneumonia due to upset stomach from the oral antibiotics. He was requested to come by the primary care physician. Patient has slight leukocytosis of 12.1. Hyponatremic with a sodium 125. He has mild interstitial edema/atelectasis according to radiology report of the chest x-ray. Started on 75 mL per hour of normal saline. Patient also given 1 g Rocephin. Blood culture pending. Lactic acid within normal limits. Initial troponin is negative. Coags within normal limits. BNP 250. Patient will be admitted for further medical management for failure of outpatient treatment as well as hyponatremia. I spoke with Dr. reynolds she will admit for further medical management. cepheid pending. Case discussed with (Jase Oro) I saw this patient in conjunction with the physician coding assistant. I performed independent history and physical exam. Agree with case management. (Cal Pak) - Lab Data Lab Results 03/12/21 03/12/21 03/12/21 Range/Units 20:19 20:19 20:19 WBC 12.1 H (3.8-10.6) k/uL RBC 3.25 L (4.30-5.90) m/uL Hgb 10.9 L (13.0-17.5) gm/dL Hct 30.0 L (39.0-53.0) % MCV 92.3 (80.0-100.0) fL MCH 33.4 (25.0-35.0) pg MCHC 36.2 (31.0-37.0) g/dL RDW 12.9 (11.5-15.5) % Plt Count 214 (150-450) k/uL MPV 6.8 Neutrophils % 81 % Lymphocytes % 7 % Monocytes % 7 % Eosinophils % 2 % Basophils % 1 % Neutrophils # 9.8 H (1.3-7.7) k/uL Lymphocytes # 0.8 L (1.0-4.8) k/uL Monocytes # 0.9 (0-1.0) k/uL Eosinophils # 0.3 (0-0.7) k/uL Basophils # 0.1 (0-0.2) k/uL PT 10.9 (9.0-12.0) sec INR 1.0 (<1.2) APTT 25.3 (22.0-30.0) sec Sodium 125 L (137-145) mmol/L Potassium 3.8 (3.5-5.1) mmol/L Chloride 94 L (98-107) mmol/L Carbon Dioxide 24 (22-30) mmol/L Anion Gap 7 mmol/L BUN 9 (9-20) mg/dL Creatinine 0.81 (0.66-1.25) mg/dL Est GFR (CKD-EPI)AfAm >90 (>60 ml/min/1.73 sqM) Est GFR (CKD-EPI)NonAf >90 (>60 ml/min/1.73 sqM) Glucose 108 H (74-99) mg/dL Plasma Lactic Acid Judson (0.7-2.0) mmol/L Calcium 8.3 L (8.4-10.2) mg/dL Total Bilirubin 0.8 (0.2-1.3) mg/dL AST 29 (17-59) U/L ALT 39 (4-49) U/L Alkaline Phosphatase 79 (38-126) U/L Troponin I (0.000-0.034) ng/mL NT-Pro-B Natriuret Pep pg/mL Total Protein 6.1 L (6.3-8.2) g/dL Albumin 3.2 L (3.5-5.0) g/dL Procalcitonin (0.02-0.09) ng/mL 03/12/21 03/12/21 03/12/21 Range/Units 20:19 20:19 20:19 WBC (3.8-10.6) k/uL RBC (4.30-5.90) m/uL Hgb (13.0-17.5) gm/dL Hct (39.0-53.0) % MCV (80.0-100.0) fL MCH (25.0-35.0) pg MCHC (31.0-37.0) g/dL RDW (11.5-15.5) % Plt Count (150-450) k/uL MPV Neutrophils % % Lymphocytes % % Monocytes % % Eosinophils % % Basophils % % Neutrophils # (1.3-7.7) k/uL Lymphocytes # (1.0-4.8) k/uL Monocytes # (0-1.0) k/uL Eosinophils # (0-0.7) k/uL Basophils # (0-0.2) k/uL PT (9.0-12.0) sec INR (<1.2) APTT (22.0-30.0) sec Sodium (137-145) mmol/L Potassium (3.5-5.1) mmol/L Chloride (98-107) mmol/L Carbon Dioxide (22-30) mmol/L Anion Gap mmol/L BUN (9-20) mg/dL Creatinine (0.66-1.25) mg/dL Est GFR (CKD-EPI)AfAm (>60 ml/min/1.73 sqM) Est GFR (CKD-EPI)NonAf (>60 ml/min/1.73 sqM) Glucose (74-99) mg/dL Plasma Lactic Acid Judson 0.8 (0.7-2.0) mmol/L Calcium (8.4-10.2) mg/dL Total Bilirubin (0.2-1.3) mg/dL AST (17-59) U/L ALT (4-49) U/L Alkaline Phosphatase (38-126) U/L Troponin I <0.012 (0.000-0.034) ng/mL NT-Pro-B Natriuret Pep 230 pg/mL Total Protein (6.3-8.2) g/dL Albumin (3.5-5.0) g/dL Procalcitonin (0.02-0.09) ng/mL 03/12/21 Range/Units 20:19 WBC (3.8-10.6) k/uL RBC (4.30-5.90) m/uL Hgb (13.0-17.5) gm/dL Hct (39.0-53.0) % MCV (80.0-100.0) fL MCH (25.0-35.0) pg MCHC (31.0-37.0) g/dL RDW (11.5-15.5) % Plt Count (150-450) k/uL MPV Neutrophils % % Lymphocytes % % Monocytes % % Eosinophils % % Basophils % % Neutrophils # (1.3-7.7) k/uL Lymphocytes # (1.0-4.8) k/uL Monocytes # (0-1.0) k/uL Eosinophils # (0-0.7) k/uL Basophils # (0-0.2) k/uL PT (9.0-12.0) sec INR (<1.2) APTT (22.0-30.0) sec Sodium (137-145) mmol/L Potassium (3.5-5.1) mmol/L Chloride (98-107) mmol/L Carbon Dioxide (22-30) mmol/L Anion Gap mmol/L BUN (9-20) mg/dL Creatinine (0.66-1.25) mg/dL Est GFR (CKD-EPI)AfAm (>60 ml/min/1.73 sqM) Est GFR (CKD-EPI)NonAf (>60 ml/min/1.73 sqM) Glucose (74-99) mg/dL Plasma Lactic Acid Judson (0.7-2.0) mmol/L Calcium (8.4-10.2) mg/dL Total Bilirubin (0.2-1.3) mg/dL AST (17-59) U/L ALT (4-49) U/L Alkaline Phosphatase (38-126) U/L Troponin I (0.000-0.034) ng/mL NT-Pro-B Natriuret Pep pg/mL Total Protein (6.3-8.2) g/dL Albumin (3.5-5.0) g/dL Procalcitonin 0.05 (0.02-0.09) ng/mL Disposition Is patient prescribed a controlled substance at d/c from ED?: No Time of Disposition: 21:59 <Jase Oro - Last Filed: 03/12/21 21:29> <Cal Pak - Last Filed: 03/26/21 07:20> Clinical Impression: Hyponatremia, Failure of outpatient treatment, Pneumonia, Anemia Disposition: ADMITTED IP TO THIS HOSP Condition: Fair
[2021-03-12 20:35] LABS: Basophils # (A) 0.1 k/uL (0-0.2); Basophils % (A) 1 %; Eosinophils # (A) 0.3 k/uL (0-0.7); Eosinophils % (A) 2 %; HGB 10.9 gm/dL (13.0-17.5); Lymphocytes # (A) 0.8 k/uL (1.0-4.8); Lymphocytes % (A) 7 %; MCH 33.4 pg (25.0-35.0); MCHC 36.2 g/dL (31.0-37.0); MCV 92.3 fL (80.0-100.0); Mean Platelet Volume 6.8; Monocytes # (A) 0.9 k/uL (0-1.0); Monocytes % (A) 7 %; Neutrophils # (A) 9.8 k/uL (1.3-7.7); Neutrophils % (A) 81 %; Platelet Count 214 k/uL (150-450); RBC 3.25 m/uL (4.30-5.90); RDW 12.9 % (11.5-15.5); WBC 12.1 k/uL (3.8-10.6)
[2021-03-12 20:44] LABS: Partial Thromboplastin Time 25.3 sec (22.0-30.0); Prothrombin Time 10.9 sec (9.0-12.0)
[2021-03-12 20:47] LABS: ALT 39 U/L (4-49); AST 29 U/L (17-59); African American GFR (CKD) >90 (>60 ml/min/1.73 sqM); Albumin 3.2 g/dL (3.5-5.0); Alkaline Phosphatase 79 U/L (38-126); Anion Gap 7 mmol/L; Blood Urea Nitrogen 9 mg/dL (9-20); Calcium 8.3 mg/dL (8.4-10.2); Carbon Dioxide 24 mmol/L (22-30); Chloride 94 mmol/L (98-107); Glucose 108 mg/dL (74-99); Non-African American GFR(CKD) >90 (>60 ml/min/1.73 sqM); Potassium 3.8 mmol/L (3.5-5.1); Sodium 125 mmol/L (137-145); Total Bilirubin 0.8 mg/dL (0.2-1.3); Total Protein 6.1 g/dL (6.3-8.2)
--- NOTE | 2021-03-12 20:59 | XR ---
EXAMINATION TYPE: XR chest 2V DATE OF EXAM: 03/12/2021 COMPARISON: 12/20/2020. HISTORY: Difficulty breathing. TECHNIQUE: Frontal and lateral views of the chest are obtained. FINDINGS: There is mild interstitial edema with bibasilar hazy opacities. No pleural effusion, or pn eumothorax seen. The cardiac silhouette size is mildly enlarged. The osseous structures are intact . IMPRESSION: Mild interstitial edema/atelectasis.
[2021-03-12] MEDS ORDERED: MORPHINE SULFATE 4 MG/ML SYRINGE IV PRN (21:28)
[2021-03-12] MEDS ORDERED: ONDANSETRON 4 MG/2 ML VIAL IVP PRN (21:28)
[2021-03-12] MEDS ORDERED: LORazepam 2 MG/ML INJ IV PRN (21:28)
[2021-03-12] MEDS ORDERED: NALOXONE 0.4 MG/ML 1 ML VIAL IV PRN (21:28)
[2021-03-12] MEDS ORDERED: ACETAMINOPHEN TAB 325 MG TAB PO PRN (21:28)
[2021-03-13] MEDS ORDERED: ONDANSETRON 4 MG TAB PO PRN (09:32)
[2021-03-13] MEDS ORDERED: ALBUTEROL HFA INHALER INHALATION PRN (09:32)
[2021-03-13] MEDS: PANTOPRAZOLE 40 MG/10 ML VIAL IVP SCH (09:48)
[2021-03-13] MEDS: SODIUM CHLORIDE 0.9% 1,000 ML IV SCH ×2 (09:49→21:02)
[2021-03-13] MEDS ORDERED: ALBUTEROL NEBULIZED 2.5 MG/3 ML INHALATION PRN (10:06)
--- NOTE | 2021-03-13 10:25 | P.HPIM ---
History of Present Illness 70-year-old male is being admitted for hyponatremia. Patient the was recently hospital is in [facility] hospital for right lower lobe pneumonia was treated with antibiotics was discharged on Augmentin antibiotics patient didn't tolerate this medication patient started throwing up and was having diarrhea for 3 days. He was discharged about a week ago. After that his symptoms resolved although patient was hyponatremic when he had his usual lab testing done in his PCPs office. Because of which patient was sent here. Patient had a chest x-ray here which showed some atelectasis no evidence of pneumonia at this time. Patient fo llows with Dr. Porter as an outpatient. Patient used to be a smoker does have history of COPD doesn't usually wear oxygen. Patient is on 2 L of oxygen now but saturating well on 2 L may not require any oxygen. Patient the serum sodium today is 125. Patient is also on lisinopril hydrochlorothiazide combination. Patient will be started on IV fluids. Patient is also on salt tablets which appears that this was started by his primary care physician because of low sodium about 2-3 days ago. Patient doesn't have any fever chills doesn't have any leukocytosis. had a cardiac catheterization with stent placed in August of last year. Review of Systems REVIEW OF SYSTEMS: CONSTITUTIONAL: No fever, no malaise, no fatigue. HEENT: No recent visual problems or hearing problems. Denied any sore throat. CARDIOVASCULAR: No chest pain, orthopnea, PND, no palpitations, no syncope. PULMONARY: No shortness of breath, no cough, no hemoptysis. GASTROINTESTINAL: No diarrhea, no nausea, no vomiting, no abdominal pain. NEUROLOGICAL: No headaches, no weakness, no numbness. HEMATOLOGICAL: Denies any bleeding or petechiae. GENITOURINARY: Denies any burning micturition, frequency, or urgency. MUSCULOSKELETAL/RHEUMATOLOGICAL: Denies any joint pain, swelling, or any muscle pain. ENDOCRINE: Denies any polyuria or polydipsia. The rest of the 14-point review of systems is negative. Past Medical History Past Medical History: COPD, CVA/TIA, Hyperlipidemia, Hypertension, Pneumonia, Sleep Apnea/CPAP/BIPAP Additional Past Medical History / Comment(s): Migraines, right cataract, two leaky valves, has CPAP machine. History of Any Multi-Drug Resistant Organisms: None Reported Past Surgical History: Heart Catheterization, Hernia Repair Additional Past Surgical History / Comment(s): Left cataract surgery. stent LAD by Dr Schmitz 08/27/20 Past Anesthesia/Blood Transfusion Reactions: No Reported Reaction Past Psychological History: No Psychological Hx Reported Smoking Status: Former smoker Past Alcohol Use History: Occasional Past Drug Use History: Marijuana - Past Family History Mother Family Medical History: No Reported History Father Additional Family Medical History / Comment(s): Parkinsons Medications and Allergies Home Medications Medication Instructions Recorded Confirmed Type Aspirin [Adult Low Dose Aspirin EC] 81 mg PO DAILY 04/11/19 03/12/21 History Fluticasone/Umeclidin/Vilanter 1 puff INHALATION RT-DAILY 08/01/20 03/12/21 History [Trelegy Ellipta 100-62.5-25] Albuterol Sulfate [Ventolin HFA] 2 puff INHALATION RT-Q4H PRN 03/12/21 03/12/21 History Atorvastatin [Lipitor] 80 mg PO DAILY 03/12/21 03/12/21 History Clopidogrel Bisulfate [Plavix] 75 mg PO DAILY 03/12/21 03/12/21 History L.acidoph,Paracasei, B.lactis 1 cap PO DAILY 03/12/21 03/12/21 History [Probiotic] Losartan/Hydrochlorothiazide 1 tab PO DAILY 03/12/21 03/12/21 History [Losartan-Hctz 50-12.5 mg Tab] Metoprolol Tartrate [Lopressor] 25 mg PO BID 03/12/21 03/12/21 History Ondansetron [Zofran] 4 mg PO Q6H PRN 03/12/21 03/12/21 History Sodium Chloride Tab 1 gm PO DAILY 03/12/21 03/12/21 History Allergies Allergy/AdvReac Type Severity Reaction Status Date / Time cefuroxime AdvReac Nausea & Verified 03/12/21 21:25 Vomiting & Diarrhea doxycycline AdvReac Nausea & Verified 03/12/21 21:25 Vomiting & Diarrhea Physical Exam Vitals: Vital Signs Temp Pulse Resp BP Pulse Ox 03/13/21 09:00 70 18 97 03/13/21 08:00 18 128/73 03/13/21 07:33 128/73 03/13/21 07:22 73 16 97 03/13/21 01:36 85 16 163/89 97 03/12/21 21:38 84 18 142/73 96 03/12/21 19:34 97.9 F 94 20 134/72 93 L Intake and Output 03/12/21 03/13/21 03/13/21 22:59 06:59 14:59 Other: Weight 119.068 kg PHYSICAL EXAMINATION: GENERAL: The patient is alert and oriented x3, not in any acute distress. Well developed, well nourished. HEENT: Pupils are round and equally reacting to light. EOMI. No scleral icterus. No conjunctival pallor. Normocephalic, atraumatic. No pharyngeal erythema. No thyromegaly. CARDIOVASCULAR: S1 and S2 present. No murmurs, rubs, or gallops. PULMONARY: Chest is clear to auscultation, no wheezing or crackles. ABDOMEN: Soft, nontender, nondistended, normoactive bowel sounds. No palpable organomegaly. MUSCULOSKELETAL: No joint swelling or deformity. EXTREMITIES: No cyanosis, clubbing, or pedal edema. NEUROLOGICAL: Gross neurological examination did not reveal any focal deficits. SKIN: No rashes. Results CBC & Chem 7: 03/12/21 20:19 03/12/21 20:19 Labs: Abnormal Lab Results - Last 24 Hours (Table) 03/12/21 03/12/21 Range/Units 20:19 20:19 WBC 12.1 H (3.8-10.6) k/uL RBC 3.25 L (4.30-5.90) m/uL Hgb 10.9 L (13.0-17.5) gm/dL Hct 30.0 L (39.0-53.0) % Neutrophils # 9.8 H (1.3-7.7) k/uL Lymphocytes # 0.8 L (1.0-4.8) k/uL Sodium 125 L (137-145) mmol/L Chloride 94 L (98-107) mmol/L Glucose 108 H (74-99) mg/dL Calcium 8.3 L (8.4-10.2) mg/dL Total Protein 6.1 L (6.3-8.2) g/dL Albumin 3.2 L (3.5-5.0) g/dL Assessment and Plan Plan: -Asymptomatic hypovolemic hyponatremia: Secondary to diuretics that his hydrochlorothiazide and nausea vomiting. Patient was started on IV fluids will repeat serum sodium tomorrow if that improves patient will be discharged tomorrow sodium tablets will be discontinued at this time. -Right lower lobe atelectasis incentive spirometry no evidence of pneumonia will not require any more antibiotics -Hyperlipidemia -COPD without any acute exacerbation - coronary artery disease -Hypertension: Metoprolol will be continued losartan and hydrocodone presently will be held blood pressure was monitored decision regarding antibioticwill be made upon discharge -DVT prophylaxis: Early ambulation
[2021-03-13] MEDS ORDERED: IPRATROPIUM 0.5 MG/2.5 ML NEBU INHALATION SCH (12:00)
[2021-03-13] MEDS: IPRATROPIUM-ALBUTEROL 3 ML NEB INHALATION SCH ×3 (12:19→20:37)
--- NOTE | 2021-03-13 12:45 | P.CNPUL ---
<Rose Mary Turcios - Last Filed: 03/13/21 12:45> History of Present Illness Consult date: 03/13/21 Requesting physician: Maynor E Jose Reason for consult: dyspnea, abnormal CXR/CT Chief complaint: Shortness of breath, weakness History of present illness: This is a pleasant 70-year-old male patient who follows with Dr. Simpson as his primary care provider. He has a history of coronary artery disease with previous stent placement to the LAD, hypertension, hyperlipidemia, obstructive sleep apnea on CPAP in the outpatient setting, former smoker, chronic obstructive pulmonary disease and follows with Dr. Shameka Pink in our office for the same. He is maintained on Trelegy and Ventolin in the outpatient setting. He had recently been hospitalized at [facility] for a diagnosis of pneumonia. He states 3-4 days and was discharged home last week. He was on antibiotics and eventually gave him an upset stomach. He developed significant vomiting and diarrhea with poor appetite. He was still feeling quite poorly and presented here to the emergency room for the same. He states he has had four CoVID testing all of which were negative. He had received Moderna vaccine second dose on 01/16/2021. Chest x-ray reveals evidence of mild interstitial edema/atelectasis. Outside computed tomography scan from [place] is revealing a left perihilar mass. White count 12.1. Hemoglobin 10.9. Sodium 125. Potassium 3.8. Creatinine 0.81. ProBNP 2:30. Troponin negative times one. Lactic acid 0.8. He's been initiated on 0.9 normal saline at 100 ML's per hour, Symbicort, albuterol. He is seen today in consultation in the emergency room. He is currently resting comfortably on the stretcher. Awake and alert in no acute distress. Maintaining O2 saturations in the mid 90s on 2 L/m per nasal cannula. He is afebrile. Hemodynamically stable. Review of Systems REVIEW OF SYSTEMS: CONSTITUTIONAL: Generalized weakness. Denies any recent significant weight loss or weight gain. EYES: Denies change in vision. EARS, NOSE, MOUTH, THROAT: Denies headaches, denies sore throat. CARDIOVASCULAR: Denies chest pain, palpitations or syncopal episodes. RESPIRATORY: Positive for shortness of breath, cough, congestion no hemoptysis. GASTROINTESTINAL: Positive for nausea, vomiting, diarrhea GENITOURINARY: Denies hematuria, denies infections. MUSKULOSKELETAL: Denies pain, denies swelling. INTEGUMENTARY: Denies rash, denies eczema. NEUROLOGICAL: Denies recent memory loss, no recent seizure activity. PSYCHIATRIC: Denies anxiety, denies depression. HEMATOLOGIC/LYMPHATIC: Denies anemia, denies enlarged lymph nodes. Past Medical History Past Medical History: COPD, CVA/TIA, Hyperlipidemia, Hypertension, Pneumonia, Sleep Apnea/CPAP/BIPAP Additional Past Medical History / Comment(s): Migraines, right cataract, two leaky valves, has CPAP machine. History of Any Multi-Drug Resistant Organisms: None Reported Past Surgical History: Heart Catheterization, Hernia Repair Additional Past Surgical History / Comment(s): Left cataract surgery. stent LAD by Dr Schmitz 08/27/20 Past Anesthesia/Blood Transfusion Reactions: No Reported Reaction Past Psychological History: No Psychological Hx Reported Smoking Status: Former smoker Past Alcohol Use History: Occasional Past Drug Use History: Marijuana - Past Family History Mother Family Medical History: No Reported History Father Additional Family Medical History / Comment(s): Parkinsons Medications and Allergies Home Medications Medication Instructions Recorded Confirmed Type Aspirin [Adult Low Dose Aspirin EC] 81 mg PO DAILY 04/11/19 03/12/21 History Fluticasone/Umeclidin/Vilanter 1 puff INHALATION RT-DAILY 08/01/20 03/12/21 History [Trelegy Ellipta 100-62.5-25] Albuterol Sulfate [Ventolin HFA] 2 puff INHALATION RT-Q4H PRN 03/12/21 03/12/21 History Atorvastatin [Lipitor] 80 mg PO DAILY 03/12/21 03/12/21 History Clopidogrel Bisulfate [Plavix] 75 mg PO DAILY 03/12/21 03/12/21 History L.acidoph,Paracasei, B.lactis 1 cap PO DAILY 03/12/21 03/12/21 History [Probiotic] Losartan/Hydrochlorothiazide 1 tab PO DAILY 03/12/21 03/12/21 History [Losartan-Hctz 50-12.5 mg Tab] Metoprolol Tartrate [Lopressor] 25 mg PO BID 03/12/21 03/12/21 History Ondansetron [Zofran] 4 mg PO Q6H PRN 03/12/21 03/12/21 History Sodium Chloride Tab 1 gm PO DAILY 03/12/21 03/12/21 History Allergies Allergy/AdvReac Type Severity Reaction Status Date / Time cefuroxime AdvReac Nausea & Verified 03/12/21 21:25 Vomiting & Diarrhea doxycycline AdvReac Nausea & Verified 03/12/21 21:25 Vomiting & Diarrhea Physical Exam Vitals: Vital Signs Temp Pulse Resp BP Pulse Ox 03/13/21 09:00 70 18 97 03/13/21 08:00 18 128/73 03/13/21 07:33 128/73 03/13/21 07:22 73 16 97 03/13/21 01:36 85 16 163/89 97 03/12/21 21:38 84 18 142/73 96 03/12/21 19:34 97.9 F 94 20 134/72 93 L Intake and Output 03/12/21 03/13/21 03/13/21 22:59 06:59 14:59 Other: Weight 119.068 kg GENERAL EXAM: Alert, pleasant 70-year-old gentleman, on 2 L nasal cannula comfortable in no apparent distress. HEAD: Normocephalic. EYES: Normal reaction of pupils, equal size. NOSE: Clear with pink turbinates. THROAT: No erythema or exudates. NECK: No masses, no JVD. CHEST: No chest wall deformity. LUNGS: Equal air entry with faint and extremities, crackles in the left lung base. CVS: S1 and S2 normal with no audible murmur, regular rhythm. ABDOMEN: No hepatosplenomegaly, normal bowel sounds, no guarding or rigidity. SPINE: No scoliosis or deformity SKIN: No rashes CENTRAL NERVOUS SYSTEM: No focal deficits, tone is normal in all 4 extremities. EXTREMITIES: There is no peripheral edema. No clubbing, no cyanosis. Peripheral pulses are intact. Results - Laboratory Findings CBC and BMP: 03/12/21 20:19 03/12/21 20:19 PT/INR, D-dimer PT 10.9 sec (9.0-12.0) 03/12/21 20: INR 1.0 (<1.2) 03/12/21 20:19 Abnormal lab findings: Abnormal Labs 03/12/21 03/12/21 20:19 20:19 WBC 12.1 H RBC 3.25 L Hgb 10.9 L Hct 30.0 L Neutrophils # 9.8 H Lymphocytes # 0.8 L Sodium 125 L Chloride 94 L Glucose 108 H Calcium 8.3 L Total Protein 6.1 L Albumin 3.2 L - Diagnostic Findings Chest x-ray: image reviewed CT scan - chest: image reviewed Assessment and Plan Assessment: 1 Acute hypoxemic respiratory failure secondary to recent pneumonia. Possible postobstructive pneumonia. 2 Left hilar mass 3 History of chronic tobacco dependence 4 Chronic obstructive pulmonary disease, not oxygen dependent 5 severe obstructive sleep apnea with an AHI of 98. On CPAP at a pressure of 13 cm of water. 6 Coronary artery disease with previous stent placement to the LAD 7 Hypertension 8 Hyperlipidemia 9 Hyponatremia with presenting sodium of 125. Plan: The patient was seen and evaluated by Dr. Zuleta Chest x-ray, labs and CAT scan reviewed Check pro calcitonin Will require bronchoscopy with biopsy Hold Plavix for now Continue normal saline at 100 ML's per hour We will continue to follow and make further recommendations based on his clinical status Time with Patient: Greater than 30 <Dimple Zuleta - Last Filed: 03/13/21 12:48> Physical Exam Vitals: Vital Signs Temp Pulse Resp BP Pulse Ox 03/13/21 11:00 75 18 125/70 97 03/13/21 10:00 66 18 97 03/13/21 09:00 70 18 97 03/13/21 08:00 18 128/73 03/13/21 07:33 128/73 03/13/21 07:22 73 16 97 03/13/21 01:36 85 16 163/89 97 03/12/21 21:38 84 18 142/73 96 03/12/21 19:34 97.9 F 94 20 134/72 93 L Intake and Output 03/12/21 03/13/21 03/13/21 22:59 06:59 14:59 Other: Weight 119.068 kg Results - Laboratory Findings CBC and BMP: 03/12/21 20:19 03/12/21 20:19 PT/INR, D-dimer PT 10.9 sec (9.0-12.0) 03/12/21 20:19 INR 1.0 (<1.2) 03/12/21 20:19 Abnormal lab findings: Abnormal Labs 03/12/21 03/12/21 20:19 20:19 WBC 12.1 H RBC 3.25 L Hgb 10.9 L Hct 30.0 L Neutrophils # 9.8 H Lymphocytes # 0.8 L Sodium 125 L Chloride 94 L Glucose 108 H Calcium 8.3 L Total Protein 6.1 L Albumin 3.2 L Assessment and Plan Assessment: The patient has a highly suspicious left infrahilar mass with another satellite lesion in the left upper lobe and mediastinal lymphadenopathy and the findings are very much suspicious for lung cancer. Small cell lung cancer needs to be considered as the patient also developed some hyponatremia. He was feeling unsteady which obviously raises the concern for COOK JELLY metastases. Based on all this, the patient will be hospitalized. The patient will need a bronchoscopy and left hilar mass biopsy and this will be done under navigational guidance. Fluid restriction. Monitor electrolytes. Bronchodilators. Pneumonia is doub tful. We'll continue to follow. Stop Plavix for now.
[2021-03-13] MEDS ORDERED: LIDOCAINE 1% (10MG/ML) FOR IV START INTRADERMA PRN (14:54)
[2021-03-13] MEDS: LACTATED RINGERS 1,000 ML IV SCH (15:22)
[2021-03-13] MEDS: SYMBICORT 80-4.5 MCG INHALER INHALATION SCH (20:37)
[2021-03-13] MEDS: METOPROLOL TARTRATE 25 MG TAB PO SCH (21:02)
[2021-03-14] MEDS: IPRATROPIUM-ALBUTEROL 3 ML NEB INHALATION SCH ×4 (07:48→22:10)
[2021-03-14] MEDS: SYMBICORT 80-4.5 MCG INHALER INHALATION SCH ×2 (07:49→22:10)
[2021-03-14] MEDS: ASPIRIN 81 MG PO SCH (08:27)
[2021-03-14] MEDS: PANTOPRAZOLE 40 MG/10 ML VIAL IVP SCH (08:30)
[2021-03-14] MEDS ORDERED: CLOPIDOGREL 75 MG TAB PO SCH (09:00)
[2021-03-14] MEDS: SODIUM CHLORIDE 0.9% 1,000 ML IV SCH ×2 (09:00→15:49)
[2021-03-14 09:02] LABS: African American GFR (CKD) >90 (>60 ml/min/1.73 sqM); Anion Gap 4 mmol/L; Blood Urea Nitrogen 8 mg/dL (9-20); Calcium 8.4 mg/dL (8.4-10.2); Carbon Dioxide 28 mmol/L (22-30); Chloride 97 mmol/L (98-107); Glucose 104 mg/dL (74-99); Non-African American GFR(CKD) >90 (>60 ml/min/1.73 sqM); Potassium 4.2 mmol/L (3.5-5.1); Sodium 129 mmol/L (137-145)
[2021-03-14 11:55] VITALS: BMI 35.6
[2021-03-14] MEDS ORDERED: IV FLUID CONTINUATION 300 ML IV ONE ×2 (12:06)
--- NOTE | 2021-03-14 12:10 | CT ---
EXAMINATION TYPE: CT Chest salty North Protocol DATE OF EXAM: 03/14/2021 COMPARISON: 03/03/2021 HISTORY: failure of outpatient pneumonia, pre bronch CT DLP: 745.4 mGycm Automated exposure control for dose reduction was used. FINDINGS: Limited CT scan is part of prebronchoscopy protocol. Emphysematous changes are seen there is biapical pleural thickening. There are scattered bilateral lo wer lobe infiltrates with tiny pleural effusions. The heart is enlarged or suggestion of annular calcification as well as calcification of the aortic v alve. Dense coronary artery calcification and atherosclerotic change aorta. Lack of contrast limits assessment for adenopathy. Additional 8 mm nodule in the anterior margin of t he right lower lobe axial image 33. Infiltrates involving the lung bases have a somewhat nodular comp onent and there is a well-circumscribed nodule in the right upper lobe measuring 9 mm. Additional pun ctate scattered satellite nodules are seen in the right upper lobe. No pneumothorax In the left infrahilar region there is a 4.6 cm area of nodular adenopathy or mass. Images of the upper abdomen demonstrate atherosclerotic change of the aorta and renal artery. Hypertr ophic and degenerative changes of the spine are noted. IMPRESSION: 1. Bilateral infiltrates and areas of nodular density or infiltrate as discussed above. Correlate for infectious versus inflammatory change. Neoplastic process in the differential diagnosis. 2. There is a more nodular masslike density seen in the left infrahilar region measuring 4.6 cm. Huy elate for history of malignancy. Additional subcentimeter nodularity seen involving the lungs as discussed above. 3. Dense coronary artery calcification.
--- NOTE | 2021-03-14 12:49 | P.PN ---
Subjective Progress Note Date: 03/14/21 On today's evaluation of 03/14/2021, the patient is stable. Awaiting his bronchoscopy and biopsy. I intend to do this under navigational guidance. The CAT scan of the chest will be done. His sodium level today is up to 129. A Veran CAT scan of the chest was done and the patient was found to have emph ysematous changes bilaterally with biapical pleural thickening and areas of scattered bilateral lower lobe pulmonary infiltrate and tiny pleural effusions. There was additional 8mm nodule in the anterior margin of the right lower lobe, infiltrates involving the lung bases that had somewhat nodular component and there was a well-circumscribed nodule in the right upper lobe measuring 9 mm in size. There was an additional 4.6 cm mass in the left infrahilar area. The such, the appropriate mapping will be done and the patient is going to undergo a bronchoscopy and biopsies today. Plavix is currently on hold. Sodium level is up to 129. Infection is doubtful. His pro calcitonin level is at 0.05. He is not receiving any antibiotics for now. Objective - Vital Signs Vital signs: Vital Signs Temp 99.4 F 03/14/21 12:07 Pulse 85 03/14/21 12:07 Resp 16 03/14/21 12:07 BP 142/65 03/14/21 12:07 Pulse Ox 94 L 03/14/21 12:07 Intake & Output 03/13/21 03/14/21 03/14/21 18:59 06:59 18:59 Intake Total 100 100 Balance 100 100 Weight 119.068 kg 119.068 kg Intake: Oral 100 100 Other: Voiding Method Toilet Toilet # Voids 3 - Exam GENERAL EXAM: Alert, pleasant 70-year-old gentleman, on 2 L nasal cannula comfortable in no apparent distress. HEAD: Normocephalic. EYES: Normal reaction of pupils, equal size. NOSE: Clear with pink turbinates. THROAT: No erythema or exudates. NECK: No masses, no JVD. CHEST: No chest wall deformity. LUNGS: Equal air entry with faint and extremities, crackles in the left lung base. CVS: S1 and S2 normal with no audible murmur, regular rhythm. ABDOMEN: No hepatosplenomegaly, normal bowel sounds, no guarding or rigidity. SPINE: No scoliosis or deformity SKIN: No rashes CENTRAL NERVOUS SYSTEM: No focal deficits, tone is normal in all 4 extremities. EXTREMITIES: There is no peripheral edema. No clubbing, no cyanosis. Peripheral pulses are intact. - Labs CBC & Chem 7: 03/12/21 20:19 03/14/21 08:33 Labs: Abnormal Lab Results - Last 24 Hours (Table) 03/14/21 Range/Units 08:33 Sodium 129 L (137-145) mmol/L Chloride 97 L (98-107) mmol/L BUN 8 L (9-20) mg/dL Glucose 104 H (74-99) mg/dL Microbiology - Last 24 Hours (Table) 03/12/21 20:05 Blood Culture - Preliminary Blood No Growth after 24 hours 03/12/21 20:19 Blood Culture - Preliminary Blood No Growth after 24 hours Assessment and Plan Plan: 1 left infrahilar mass measuring 4.6 cm in addition to scattered no other densities bilaterally and subcarinal lymphadenopathy, highly suspicious for metastatic lung cancer, consider small cell 2 hypoxic respiratory failure currently on 2 L of oxygen by nasal cannula, acute 3 History of chronic tobacco dependence 4 Chronic obstructive pulmonary disease, not oxygen dependent 5 severe obstructive sleep apnea with an AHI of 98. On CPAP at a pressure of 13 cm of water. 6 Coronary artery disease with previous stent placement to the LAD 7 Hypertension 8 Hyperlipidemia 9 Hyponatremia with presenting sodium of 129 Plan We'll proceed with bronchoscopy Appropriate the mapping will be done using the Veran protocol We will continue to follow. Monitor sodium level. Further recommendations to follow based on the findings.
[2021-03-14] MEDS ORDERED: LIDOCAINE 1% INJ 10MG/ML (20 ML MDV) ONE (12:55)
[2021-03-14] MEDS ORDERED: GLYCOPYRROLATE 0.2 MG/ML 2 ML VIAL ONE (12:55)
[2021-03-14] MEDS ORDERED: fentaNYL (PF) 50 MCG/ML 2 ML AMP ONE (12:55)
[2021-03-14] MEDS ORDERED: MIDAZOLAM 2 MG/2 ML VIAL ONE (12:55)
[2021-03-14] MEDS ORDERED: SUCCINYLCHOLINE CHLORIDE 100 MG/5 ML SYR IV ONE (12:55)
[2021-03-14] MEDS ORDERED: ROCURONIUM 10 MG/ML (5 ML VIAL) IV ONE (12:55)
[2021-03-14] MEDS ORDERED: NEOSTIGMINE 1 MG/ML 10 ML VIAL ONE (12:55)
[2021-03-14] MEDS ORDERED: PROPOFOL 10 MG/ML 20 ML VIAL IV ONE (12:55)
--- NOTE | 2021-03-14 13:43 | P.PCN ---
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 The patient was found to have a left infrahilar mass on a CAT scan of the chest. Based on that, and the navigation bronchoscopy was planned. The patient underwent a CAT scan of the chest using the Veran protocol. The appropriate V pads were applied to his chest. The CAT scan was completed. Images were uploaded into our and left infrahilar mass was identified and it was mapped and appropriate navigational Route was established to the mass. Following that, will not this information was uploaded into a USB and later on into our navigational power. The patient was brought into the endoscopy suite where the patient was intubated and placed on a mechanical ventilator in the usual fashion. The patient was intubated by a #8 orotracheal tube. Following that, the flexible bronchoscope was introduced with orotracheal tube and an airway inspection was done. Distal trachea, iris, bilateral mainstem bronchi were patent and within normal limits. The bronchoscope was removed to the right side and the visualized airways in the right including the right upper lobe bronchus and the 3 different segments, right middle lobe bronchus along with the 2 different segments and the right lower lobe bronchus along with its 5 segments. Some yellowish thick rest or secretions were encountered within the airway and these were suctioned out without any major difficulties. Then the bronchoscope was moved to the left. Left mainstem bronchus was patent within normal limits. Left upper lobe bronchus was patent. Lingular segment occluding this. In the inferior segment and the left upper lobe anterior and apical posterior segments were patent. Then the bronchoscope was moved to the left lower lobe and endobronchial tumor was easily identified occupying and completely obstructed left lower lobe bronchus. This was a pain, irregular tumor that was outgrowing its vascular supply and had some necrotic areas. At this point, appropriate calibration was done using the navigational system. The main iris and the secondary iris on the left were used as reference points. Using navigational forceps, the left lower lobe endobronchial tumor was biopsied and the position of the tumor was also confirmed using navigational guidance. Multiple endobronchial biopsies were obtained. Following that, and the bronchial brushings of the left lower lobe bronchus was done and at the completion of the procedure and the bronchial brushings of the endobronchial tumor was done. A total of 4 disease of fluid was infused and 20 mL was suctioned back without any major difficulties. The patient tolerated the procedure well. Therapeutic it was suctioning was done. Bronchoscope was removed and the patient was extubated and following that the patient was transferred to recovery in stable condition. Samples will be sent for pathologic evaluation. We'll continue to follow. No bedside complications. No bleeding. Estimated amount of bleeding is less than 5 mL.
--- NOTE | 2021-03-14 14:32 | XR ---
EXAMINATION TYPE: XR chest 1V portable DATE OF EXAM: 03/14/2021 CLINICAL HISTORY: Difficulty breathing progress study. Post bronchoscopy. TECHNIQUE: Single AP portable upright view of the chest is obtained. COMPARISON: Chest x-ray from 2 days earlier FINDINGS: There are chronic parenchymal changes with bibasilar opacities. Cardiac silhouette size is within normal limits with atherosclerotic thoracic aorta. Osseous structures are demineralized with degenerative change bilateral glenohumeral joints IMPRESSION: Chronic changes with left greater than right bibasilar acute infiltrate and/or atelectasi s redemonstrated. No pneumothorax after bronchoscopy.
--- NOTE | 2021-03-14 15:08 | P.PN ---
Subjective Progress Note Date: 03/14/21 70-year-old male is being admitted for hyponatremia. Patient the was recently hospital is in [facility] hospital for right lower lobe pneumonia was treated with antibiotics was discharged on Augmentin antibiotics patient didn't tolerate this medication patient started throwing up and was having diarrhea for 3 days. He was discharged about a week ago. After that his symptoms resolved although patient was hyponatremic when he had his usual lab testing done in his PCPs office. Because of which patient was sent here. Patient had a chest x-ray here which showed some atelectasis no evidence of pneumonia at this time. Patient follows with Dr. Porter as an outpatient. Patient used to be a smoker does have history of COPD doesn't usually wear oxygen. Patient is on 2 L of oxygen now but saturating well on 2 L may not require any oxygen. Patient the serum sodium today is 125. Patient is also on lisinopril hydrochlorothiazide combination. Patient will be started on IV fluids. Patient is also on salt tablets which appears that this was started by his primary care physician because of low so dium about 2-3 days ago. Patient doesn't have any fever chills doesn't have any leukocytosis. had a cardiac catheterization with stent placed in August of last year. 03/14/2021 Patient is seen and evaluated and follow-up continues to be short of breath currently maintained on 2 L of oxygen via nasal cannula and is scheduled to undergo bronchoscopy with biopsy as an outside hospital performed a computed tomography scan showing a left infrahilar mass. Patient also continues to be hyponatremic and sodium slightly improved at 129 today. Patient is maintained on normal saline and will continue. demanding his salt tablets that are currently on hold that his primary care provider started last week. Patient was also having some feelings of constipation and requesting something to help have a bowel movement. Sodium today is 129 and potassium is 4.2 and current creatinine is 0.77. Will continue with normal saline hydration and repeat a.m. labs. Review of systems: Constitutional: No reports of fatigue, fever, or chills Cardiovascular: No reports of chest pain or palpitations Respiratory: Reports mild shortness of breath GI: No reports of nausea, vomiting, or diarrhea, reports constipation with no bowel movement in the last 3-4 days : No reports of dysuria or retention Neurovascular: No reports of weakness or numbness All medications have been reviewed Objective - Vital Signs Vital signs: Vital Signs Temp 97.8 F 03/14/21 08:00 Pulse 74 03/14/21 08:01 Resp 16 03/14/21 08:00 BP 123/74 03/14/21 08:00 Pulse Ox 98 03/14/21 08:00 Intake & Output 03/13/21 03/14/21 03/14/21 18:59 06:59 18:59 Intake Total 100 100 Balance 100 100 Weight 119.068 kg Intake: Oral 100 100 Other: Voiding Method Toilet Toilet # Voids 3 - Exam GENERAL: The patient is alert and oriented x3, not in any acute distress. Well developed, well nourished. HEENT: Pupils are round and equally reacting to light. EOMI. No scleral icterus. No conjunctival pallor. Normocephalic, atraumatic. No pharyngeal erythema. No thyromegaly. CARDIOVASCULAR: S1 and S2 present. No murmurs, rubs, or gallops. PULMONARY: Chest is clear to auscultation, no wheezing or crackles. ABDOMEN: Soft, nontender, nondistended, normoactive bowel sounds. No palpable organomegaly. MUSCULOSKELETAL: No joint swelling or deformity. EXTREMITIES: No cyanosis, clubbing, or pedal edema. NEUROLOGICAL: Gross neurological examination did not reveal any focal deficits. SKIN: No rashes. - Labs CBC & Chem 7: 03/12/21 20:19 03/14/21 08:33 Labs: Abnormal Lab Results - Last 24 Hours (Table) 03/14/21 Range/Units 08:33 Sodium 129 L (137-145) mmol/L Chloride 97 L (98-107) mmol/L BUN 8 L (9-20) mg/dL Glucose 104 H (74-99) mg/dL Microbiology - Last 24 Hours (Table) 03/12/21 20:05 Blood Culture - Preliminary Blood No Growth after 24 hours 03/12/21 20:19 Blood Culture - Preliminary Blood No Growth after 24 hours Assessment and Plan Assessment: -Asymptomatic hypovolemic hyponatremia: Secondary to diuretics hydrochlorothiazide and nausea vomiting. Patient will continue on IV fluids 100 mL per hour and repeat labs in the morning, sodium today slightly improved at 129 and will continue to hold salt tablets. -Left perihilar mass noted on CT from previous hospital, pulmonary consulted and following and patient undergoing bronchoscopy with biopsy today -Right lower lobe atelectasis; continue with incentive spirometry no evidence of pneumonia will not require any more antibiotics -Hyperlipidemia -COPD without any acute exacerbation -Sleep apnea and uses CPAP at night -coronary artery disease -Hypertension: Metoprolol will be continued, continue to hold losartan and hydrochlorothiazide -DVT prophylaxis: Early ambulation Plan: Sodium improved at 129 and will continue with IV hydration of normal saline at 100 mL per hour and recheck electrolytes in the morning. Patient has been nothing by mouth this morning as he is undergoing bronchoscopy with biopsies with pulmonary as there was a CAT scan done at the prior hospital showing a left periHilar mass. Patient continues on 2 L of oxygen and states he does not normally wear oxygen except for CPAP at night. Will repeat a.m. labs and monitor sodium levels. Possible discharge in 24 hours.
[2021-03-14] MEDS: METOPROLOL TARTRATE 25 MG TAB PO SCH ×2 (15:25→20:29)
[2021-03-14] MEDS: ATORVASTATIN 80 MG TAB PO SCH (15:25)
[2021-03-14] MEDS: LACTATED RINGERS 1,000 ML IV SCH (15:27)
[2021-03-14] MEDS: LACTOBACILLUS ACIDOPH & BULGAR 1 EACH PACKET PO SCH (15:29)
[2021-03-14] MEDS: SENNOSIDES 8.6 MG TAB PO SCH (20:29)
[2021-03-15] MEDS: SODIUM CHLORIDE 0.9% 1,000 ML IV SCH ×2 (04:36→10:59)
[2021-03-15] MEDS: LACTOBACILLUS ACIDOPH & BULGAR 1 EACH PACKET PO SCH (08:04)
[2021-03-15] MEDS: ATORVASTATIN 80 MG TAB PO SCH (08:05)
[2021-03-15] MEDS: ASPIRIN 81 MG PO SCH (08:05)
[2021-03-15] MEDS: METOPROLOL TARTRATE 25 MG TAB PO SCH (08:05)
[2021-03-15] MEDS: SENNOSIDES 8.6 MG TAB PO SCH (08:05)
[2021-03-15] MEDS: PANTOPRAZOLE 40 MG/10 ML VIAL IVP SCH (08:05)
[2021-03-15 08:25] VITALS: BP 129/73; RESP 19; TEMP 97.5
[2021-03-15] MEDS: IPRATROPIUM-ALBUTEROL 3 ML NEB INHALATION SCH ×2 (08:52→11:04)
[2021-03-15] MEDS: SYMBICORT 80-4.5 MCG INHALER INHALATION SCH ×2 (08:53→09:15)
[2021-03-15 09:07] VITALS: PULSE 82
[2021-03-15 09:14] LABS: African American GFR (CKD) >90 (>60 ml/min/1.73 sqM); Anion Gap 6 mmol/L; Blood Urea Nitrogen 8 mg/dL (9-20); Calcium 8.1 mg/dL (8.4-10.2); Carbon Dioxide 27 mmol/L (22-30); Chloride 96 mmol/L (98-107); Glucose 100 mg/dL (74-99); Non-African American GFR(CKD) >90 (>60 ml/min/1.73 sqM); Potassium 4.1 mmol/L (3.5-5.1); Sodium 129 mmol/L (137-145)
--- NOTE | 2021-03-15 12:50 | P.PN ---
Subjective Progress Note Date: 03/15/21 03/15/2021, the patient is post biopsy. Doing well. No specific complaints. 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 Pathology is still pending for now. Patient is also being treated with bronchodilators. He is on room air oxygen and is pulse oxing 93%. On Symbicort as maintenance. No other significant events overnight. Infection is doubtful. His pro calcitonin level is at 0.05. He is not receiving any antibiotics for now. Objective - Vital Signs Vital signs: Vital Signs Temp 97.5 F L 03/15/21 08:00 Pulse 82 03/15/21 09:06 Resp 19 03/15/21 08:00 BP 129/73 03/15/21 08:00 Pulse Ox 93 L 03/15/21 08:00 Intake & Output 03/14/21 03/15/21 03/15/21 18:59 06:59 18:59 Intake Total 525 Balance 525 Weight 119.068 kg Intake: IV 525 Sodium Chloride 0.9% 1, 300 000 ml @ 100 mls/hr IV . Q10H [facility] Rx#:[id number] Other: Voiding Method Toilet Toilet Toilet # Voids 2 - Exam GENERAL EXAM: Alert, pleasant 70-year-old gentleman, on RA 02. HEAD: Normocephalic. EYES: Normal reaction of pupils, equal size. NOSE: Clear with pink turbinates. THROAT: No erythema or exudates. NECK: No masses, no JVD. CHEST: No chest wall deformity. LUNGS: Equal air entry with faint and extremities, crackles in the left lung base. CVS: S1 and S2 normal with no audible murmur, regular rhythm. ABDOMEN: No hepatosplenomegaly, normal bowel sounds, no guarding or rigidity. SPINE: No scoliosis or deformity SKIN: No rashes CENTRAL NERVOUS SYSTEM: No focal deficits, tone is normal in all 4 extremities. EXTREMITIES: There is no peripheral edema. No clubbing, no cyanosis. Peripheral pulses are intact. - Labs CBC & Chem 7: 03/12/21 20:19 03/15/21 08:38 Labs: Abnormal Lab Results - Last 24 Hours (Table) 03/15/21 Range/Units 08:38 Sodium 129 L (137-145) mmol/L Chloride 96 L (98-107) mmol/L BUN 8 L (9-20) mg/dL Glucose 100 H (74-99) mg/dL Calcium 8.1 L (8.4-10.2) mg/dL Microbiology - Last 24 Hours (Table) 03/14/21 13:00 Gram Stain - Preliminary Bronchial Washings - Left Bronchial Washings Culture - Preliminary 03/12/21 20:05 Blood Culture - Preliminary Blood No Growth after 48 hours 03/12/21 20:19 Blood Culture - Preliminary Blood No Growth after 48 hours 03/14/21 13:00 Acid Fast Bacilli Culture - Preliminary Bronchial Washings - Left 03/14/21 13:00 Fungal Culture - Preliminary Bronchial Washings - Left Assessment and Plan Plan: 1 left infrahilar mass measuring 4.6 cm in addition to scattered no other densities bilaterally and subcarinal lymphadenopathy, highly suspicious for metastatic lung cancer, Bronchoscopy was done, endobronchial biopsy of the left lower lobe lesion was done and please refer to the official report given post- bronchoscopy regarding the findings. Clinically the patient is stable. He has no specific complaints. He is requesting to be released home. 2 acute hypoxic respiratory failure , recovered 3 History of chronic tobacco dependence 4 Chronic obstructive pulmonary disease, not oxygen dependent 5 severe obstructive sleep apnea with an AHI of 98. On CPAP at a pressure of 13 cm of water. 6 Coronary artery disease with previous stent placement to the LAD 7 Hypertension 8 Hyperlipidemia 9 Hyponatremia with presenting sodium of 129 Plan bronchoscopy completed patient is clinically doing well. He can be discharged home to be followed up on an outpatient basis. He will need a further staging workup including a PET scan and possibly an MRI of the brain. Final pathology is also pending from the left lower lobe endobronchial tumor obstructing the left lower lobe bronchus. For now, he can be discharged home to be followed up n\ in the office.
--- NOTE | 2021-03-15 13:33 | P.DS ---
Providers Date of admission: 03/12/21 21:18 Expected date of discharge: 03/15/21 Attending physician: Maynor Garcia MD Primary care physician: Bernard Arboleda Hospital Course: Final diagnosis -Asymptomatic hypovolemic hyponatremia: Secondary to diuretics, hydrochlorothiazide and nausea vomiting. -Left perihilar mass noted on CT from previous hospital,status post bronchoscopy with biopsy today -Right lower lobe atelectasis; continue with incentive spirometry no evidence of pneumonia will not require any more antibiotics -Hyperlipidemia -COPD without any acute exacerbation -Sleep apnea and uses CPAP at night -coronary artery disease -Hypertension -DVT prophylaxis Discharge disposition Patient is being discharged in a stable condition with guarded prognosis to home. Patient will follow-up with Dr. Arboleda in the outpatient setting upon discharge. Patient is also to follow-up with Dr. Matos pulmonary as scheduled. Patient instructed to continue holding losartan/hydrochlorothiazide along with sodium tablets and follow-up with primary care provider upon discharge. Total time taken is greater than 35 minutes. Hospital course 70-year-old male is being admitted for hyponatremia. Patient the was recently hospital is in [facility] hospital for right lower lobe pneumonia was treated with antibiotics was discharged on Augmentin antibiotics patient didn't tolerate this medication patient started throwing up and was having diarrhea for 3 days. He was discharged about a week ago. After that his symptoms resolved although patient was hyponatremic when he had his usual lab testing done in his PCPs office. Because of which patient was sent here. Patient had a chest x-ray here which showed some atelectasis no evidence of pneumonia at this time. Patient follows with Dr. Porter as an outpatient. Patient used to be a smoker does have history of COPD doesn't usually wear oxygen. Patient is on 2 L of oxygen now but saturating well on 2 L may not require any oxygen. Patient the serum sodium today is 125. Patient is also on lisinopril hydrochlorothiazide combination. Patient will be started on IV fluids. Patient is also on salt tablets which appears that this was started by his primary care physician because of low sodium about 2-3 days ago. Patient doesn't have any fever chills doesn't have any leukocytosis. had a cardiac catheterization with stent placed in August of last year. 03/14/2021 Patient is seen and evaluated and follow-up continues to be short of breath currently maintained on 2 L of oxygen via nasal cannula and is scheduled to undergo bronchoscopy with biopsy as an outside hospital performed a computed tomography scan showing a left infrahilar mass. Patient also continues to be hyponatremic and sodium slightly improved at 129 today. Patient is maintained on normal saline and will continue. demanding his salt tablets that are currently on hold that his primary care provider started last week. Patient was also having some feelings of constipation and requesting something to help have a bowel movement. Sodium today is 129 and potassium is 4.2 and current creatinine is 0.77. Will continue with normal saline hydration and repeat a.m. labs. 03/15/2021 Patient is seen in follow-up with no acute overnight issues. Patient is on room air and tolerating and continues to use CPAP at night. Repeat sodium again remains 129 and instructed the patient continue holding his losartan/hydrochlorothiazide along with sodium tablets and follow-up with repeat labs in a few days to monitor sodium levels and primary care provider. Patient also instructed to follow-up with pulmonary within the next 1-2 weeks to discuss biopsy results. Patient to continue with bronchodilators upon discharge. Patient is asking and requesting to go home today. Currently no reports of chest pain, shortness of breath, or palpitations. Patient is afebrile. No reports of nausea or vomiting and patient is tolerating diet. Patient will be discharged home today. On exam vital signs are stable. Cardio S1, S2 are muffled. Respiratory system shows diminished breath sounds at the bases with no wheezing or rhonchi noted. Abdomen is soft and obese, and nontender. Nervous system shows no focal deficits. Please refer to medication reconciliation sheet for a list of medications. Patient Condition at Discharge: Fair Plan - Discharge Summary Discharge Rx Participant: No New Discharge Prescriptions: New Ipratropium-Albuterol Nebulize [Duoneb 0.5 mg-3 mg/3 ml Soln] 3 ml INHALATION RT-QID 30 Days #90 ml Acetaminophen Tab [Tylenol] 650 mg PO Q6HR PRN tab PRN Reason: Mild Pain Or Fever > 100.5 Continue Aspirin [Adult Low Dose Aspirin EC] 81 mg PO DAILY Fluticasone/Umeclidin/Vilanter [Trelegy Ellipta 100-62.5-25] 1 puff INHALATION RT-DAILY Albuterol Sulfate [Ventolin HFA] 2 puff INHALATION RT-Q4H PRN PRN Reason: Shortness Of Breath Ondansetron [Zofran] 4 mg PO Q6H PRN PRN Reason: Nausea Metoprolol Tartrate [Lopressor] 25 mg PO BID Clopidogrel Bisulfate [Plavix] 75 mg PO DAILY Atorvastatin [Lipitor] 80 mg PO DAILY L.acidoph,Paracasei, B.lactis [Probiotic] 1 cap PO DAILY Discontinued Sodium Chloride Tab 1 gm PO DAILY Losartan/Hydrochlorothiazide [Losartan-Hctz 50-12.5 mg Tab] 1 tab PO DAILY Discharge Medication List Aspirin [Adult Low Dose Aspirin EC] 81 mg PO DAILY 04/11/19 [History] Fluticasone/Umeclidin/Vilanter [Trelegy Ellipta 100-62.5-25] 1 puff INHALATION RT-DAILY 08/01/20 [History] Albuterol Sulfate [Ventolin HFA] 2 puff INHALATION RT-Q4H PRN 03/12/21 [History] Atorvastatin [Lipitor] 80 mg PO DAILY 03/12/21 [History] Clopidogrel Bisulfate [Plavix] 75 mg PO DAILY 03/12/21 [History] L.acidoph,Paracasei, B.lactis [Probiotic] 1 cap PO DAILY 03/12/21 [History] Metoprolol Tartrate [Lopressor] 25 mg PO BID 03/12/21 [History] Ondansetron [Zofran] 4 mg PO Q6H PRN 03/12/21 [History] Acetaminophen Tab [Tylenol] 650 mg PO Q6HR PRN tab 03/15/21 [Rx] Ipratropium-Albuterol Nebulize [Duoneb 0.5 mg-3 mg/3 ml Soln] 3 ml INHALATION RT-QID 30 Days #90 ml 03/15/21 [Rx] Follow up Appointment(s)/Referral(s): Remington Matos MD [STAFF PHYSICIAN] - 03/22/21 3:45 pm (appointment made with Bernard Greene MD [Primary Care Provider] - 1-2 days Ambulatory/Diagnostic Orders: Basic Metabolic Panel [LAB.AMB] Time Frame: 3 Days, Location: None Selected Activity/Diet/Wound Care/Special Instructions: Activity Limited until follow-up Follow-up with primary care provider upon discharge to discuss biopsy results Continue with CPAP Continue current medications Repeat labs in a few days to monitor sodium levels Discharge Disposition: HOME SELF-CARE
--- NOTE | 2021-03-28 15:12 | CDI ---
Documentation Clarification Form Date: 03/28/2021 03:03:44 PM From: Michel Carty Phone: Franci Medeiros [phone] Admit Date: 03/12/2021 09:18:00 PM Patient Name: Ab Dumont Visit Number: [id number] Discharge Date: 03/15/2021 01:29:00 PM ATTENTION: The Clinical Documentation Specialists (CDI) and [facility] Coding Staff appreciate your assistance in clarifying documentation. Please respond to the clarification below the line at the bottom and electronically sign. The CDI & [facility] Coding staff will review the response and follow-up if needed. Please note: Queries are made part of the Legal Health Record. If you have any questions, please contact the author of this message via ITS. Dr. 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 Coding guidelines do not allow coding professionals to code based on pathology results; therefore, clarification is requested. History/risk factors: neoplasm of LLL Clinical Indicators: SOB Treatment: transbronchial biopsy of LLL bronchus Please clarify if you agree with the pathology report diagnosis of [insert result/diagnosis]: [ ] Yes [ ] No [ ] Other (please specify) [ ] Unable to determine Yes MTDD
== END 2021-03-15 13:29 | disposition home or self-care (01) | DRG 640 ==
LOC: EC 19:27 → 4SSUR 21:18 → 6NMEDSUR 03-13 12:26
PROVIDERS: ADMIT Internal Medicine; ATTEND Internal Medicine
PROC: 0BDB8ZX Extraction of Left Lower Lobe Bronchus, Via Natural or Artificial Opening Endoscopic, Diagnostic (ICD-10-PCS; principal; 2021-03-14 12:30)
DX: E87.1 Hypo-osmolality and hyponatremia (principal); J96.01 Acute respiratory failure with hypoxia; C34.32 Malignant neoplasm of lower lobe, left bronchus or lung; J98.11 Atelectasis; D64.9 Anemia, unspecified; E86.1 Hypovolemia; T50.2X5A Adverse effect of carbonic-anhydrase inhibitors, benzothiadiazides and other diuretics, initial encounter; R11.2 Nausea with vomiting, unspecified; I10 Essential (primary) hypertension; Z87.01 Personal history of pneumonia (recurrent); Z87.891 Personal history of nicotine dependence; G47.33 Obstructive sleep apnea (adult) (pediatric); E78.5 Hyperlipidemia, unspecified; I25.10 Atherosclerotic heart disease of native coronary artery without angina pectoris; Z95.5 Presence of coronary angioplasty implant and graft; Z79.82 Long term (current) use of aspirin; Z79.02 Long term (current) use of antithrombotics/antiplatelets; R19.7 Diarrhea, unspecified; Z82.0 Family history of epilepsy and other diseases of the nervous system; J44.9 Chronic obstructive pulmonary disease, unspecified; Z86.73 Personal history of transient ischemic attack (TIA), and cerebral infarction without residual deficits; K59.00 Constipation, unspecified; Z98.42 Cataract extraction status, left eye; Z79.899 Other long term (current) drug therapy
CPT/HCPCS: 31623; 31624; 31625; 31627; 36415; 71045; 71046; 71250; 80048; 80053; 83605; 83880; 84145; 84484; 85025; 85610; 85730; 87040; 87070; 87102; 87116; 87205; 87206; 87252; 87496; 87498; 87502; 87529; 87634; 87636; 87798; 88104; 88108; 88305; 88341; 88342; 93005; 94640; 94760; 96374; 99285

== ENCOUNTER → 2021-04-09 | Outpatient (CLI) | payer MEDICARE ==
--- NOTE | 2021-04-09 14:47 | MR ---
EXAMINATION TYPE: MR brain wo/w con DATE OF EXAM: 04/09/2021 COMPARISON: NONE HISTORY: Lung ca, abnormal PET TECHNIQUE: Multiplanar, multisequence images of the brain and brainstem is performed without and with IV contras t, utilizing 11.5 mL intravenous Gadavist . FINDINGS: Diffusion weighted images demonstrate no evidence of a recent infarct or other diffusion ab normality. There is mild to moderate ventricular and sulcal prominence. Scattered foci of T2 hyperin tensity throughout the superficial, deep, and periventricular white matter. Midline structures demonstrate normal morphology. The craniocervical junction appears within normal limits. Post contrast images demonstrate no abnormal enhancement. The dural venous sinuses appear pa tent. The visualized sinuses are clear and the globes are intact. IMPRESSION: No abnormal enhancing masses to suggest metastatic disease to the brain. Mild diffuse cer ebral atrophy and moderate chronic small vessel ischemic change is noted.
== END | disposition home or self-care (01) ==
LOC: RADMRIMAIN 12:03
PROVIDERS: ATTEND Internal Medicine
DX: G31.9 Degenerative disease of nervous system, unspecified (principal); I67.82 Cerebral ischemia; Z85.118 Personal history of other malignant neoplasm of bronchus and lung; R91.8 Other nonspecific abnormal finding of lung field
CPT/HCPCS: 70553; A9585